=== PATIENT | female | born 1950 | race Hispanic/Latino ===

== ENCOUNTER 2017-09-08 23:07 | Emergency (ER) | payer MEDICARE ==
[~2017-09-08 23:07] MED LIST: AMLO5TAB2 PO; ASPI81TA40 PO; CLON0.1T PO; LOSA100T29 PO
[2017-09-08] MEDS ORDERED: ONDANSETRON HCL MDV 20ML 2 MG/ML VIAL ONE (23:12)
[2017-09-08] MEDS ORDERED: SODIUM CHLORIDE 0.9% 1000ML 1,000 ML IV ONE (23:19)
[2017-09-08] MEDS ORDERED: ONDANSETRON HCL 4 MG/2 ML VIAL ONE (23:19)
[2017-09-08 23:35] LABS: BASOPHILS % (AUTO) 1.5 % (0.0-5.0); EOSINOPHILS % (AUTO) 1.3 % (0.0-8.0); HEMATOCRIT 41.8 % (36-48); LYMPHOCYTES % (AUTO) 23.5 % (21.0-51.0); MEAN CORPUSCULAR HEMOGLOBIN 28.1 pg (27.0-33.0); MEAN CORPUSCULAR HGB CONC 33.4 g/dL (32.0-36.0); MEAN CORPUSCULAR VOLUME 84.1 fL (79-99); MONOCYTES % (AUTO) 5.1 % (3.0-13.0); NEUTROPHILS % (AUTO) 68.6 % (40.0-77.0); PLATELET COUNT (AUTO) 234 K/uL (130-400); RED BLOOD CELL COUNT(AUTO) 4.97 MIL/uL (4.00-5.50); RED CELL DISTRIBUTION WIDTH 13.4 % (11.0-15.5); WHITE BLOOD COUNT (AUTO) 11.2 K/uL (4.8-10.8)
[2017-09-08 23:48] LABS: CREATININE 1.2 mg/dL (0.5-1.5); POTASSIUM 3.9 mmol/L (3.5-5.1)
[2017-09-08 23:53] LABS: ALBUMIN 3.8 g/dL (3.5-5.0); BILIRUBIN,TOTAL 0.3 mg/dL (0.2-1.0); TOTAL PROTEIN, SERUM 8.3 g/dL (6.0-8.3)
[2017-09-09 00:49] LABS: APPEARANCE,URINE Clear (CLEAR); BILIRUBIN,URINE Negative (NEGATIVE); COLOR,URINE Yellow (YELLOW); GLUCOSE, URINE (UA) Negative (NEGATIVE); KETONES,URINE Negative (NEGATIVE); LEUKOCYTE ESTERASE ,URINE Negative (NEGATIVE); NITRATE,URINE Negative (NEGATIVE); OCCULT BLOOD,URINE Negative (NEGATIVE); PH,URINE 6.5 (5.0-8.0); PROTEIN,URINE Negative (NEGATIVE); UROBILINOGEN,URINE 0.2 mg/dL (0.2-1.0)
== END 2017-09-09 01:57 | disposition home or self-care (01) ==
LOC: EDH 23:07
DX: K52.9 Noninfective gastroenteritis and colitis, unspecified (principal); I10 Essential (primary) hypertension; Z88.6 Allergy status to analgesic agent
CPT/HCPCS: 36415; 74176; 80053; 81003; 82150; 83690; 85025; 93005; 96361; 96374; 99285; J2405; J7030

== ENCOUNTER → 2017-09-19 | Outpatient (CLI) | payer MEDICARE | END | disposition home or self-care (01) | LOC: OIH 09:37 | PROVIDERS: ATTEND Family Medicine | DX: M17.11 Unilateral primary osteoarthritis, right knee (principal) | CPT/HCPCS: 73562 ==

== ENCOUNTER → 2018-04-07 | Outpatient (CLI) | payer MEDICARE ==
[~2018-04-07] MED LIST changes: -AMLO5TAB2 PO; +AMLO5TAB9 PO; -LOSA100T29 PO; +LOSA100T58 PO
== END | disposition home or self-care (01) ==
LOC: RAH 10:26
PROVIDERS: ATTEND Family Medicine
DX: Z12.31 Encounter for screening mammogram for malignant neoplasm of breast (principal)
CPT/HCPCS: 77067

== ENCOUNTER 2018-06-12 09:51 | Inpatient (IN) | payer MEDICARE | END 2018-06-14 15:49 | disposition home or self-care (01) | LOC: EDH 09:51 → EDHIP 14:16 → 3CH 23:10 | DX: R07.89 Other chest pain (principal); I10 Essential (primary) hypertension ==

== ENCOUNTER 2018-09-25 15:45 | Emergency (ER) | payer MEDICARE ==
[~2018-09-25 15:45] MED LIST changes: +AMOX500C2 PO; +CHOL200074 PO; +CLAR500T PO; -CLON0.1T PO; +METF-444 PO; +OMEG-148 PO; +OMEP-50 PO
[2018-09-25 16:04] LABS: EOSINOPHILS % (AUTO) 1.4 % (0.0-8.0); HEMATOCRIT 41.9 % (36-48); LYMPHOCYTES % (AUTO) 25.7 % (21.0-51.0); MEAN CORPUSCULAR HEMOGLOBIN 27.8 pg (27.0-33.0); MEAN CORPUSCULAR HGB CONC 33.6 g/dL (32.0-36.0); MEAN CORPUSCULAR VOLUME 82.8 fL (79-99); MONOCYTES % (AUTO) 9.1 % (3.0-13.0); NEUTROPHILS % (AUTO) 62.8 % (40.0-77.0); PLATELET COUNT (AUTO) 248 K/uL (130-400); RED BLOOD CELL COUNT(AUTO) 5.06 MIL/uL (4.00-5.50); RED CELL DISTRIBUTION WIDTH 13.1 % (11.0-15.5); WHITE BLOOD COUNT (AUTO) 10.3 K/uL (4.8-10.8)
[2018-09-25 16:19] LABS: INR 0.99 (0.85-1.15); PARTIAL THROMBOPLASTIN TIME 29.9 SEC (26.3-35.5); PROTHROMBIN TIME 10.4 SEC (9.6-11.6)
[2018-09-25 16:20] LABS: POTASSIUM 4.2 mmol/L (3.5-5.1)
[2018-09-25 16:39] LABS: APPEARANCE,URINE Clear (CLEAR); BILIRUBIN,URINE Negative (NEGATIVE); COLOR,URINE Yellow (YELLOW); GLUCOSE, URINE (UA) Negative (NEGATIVE); KETONES,URINE Negative (NEGATIVE); LEUKOCYTE ESTERASE ,URINE Trace (NEGATIVE); NITRATE,URINE Negative (NEGATIVE); OCCULT BLOOD,URINE Negative (NEGATIVE); PROTEIN,URINE Negative (NEGATIVE); UROBILINOGEN,URINE 0.2 mg/dL (0.2-1.0)
[2018-09-25] MEDS ORDERED: LIDOCAINE HCL 2% VISCOUS 15 ML UDCUP ONE (16:44)
[2018-09-25] MEDS ORDERED: MAG HYDROX/AL HYDROX/SIMETH ES 30 ML SUSP UDCUP ONE (16:45)
[2018-09-25 17:05] LABS: ALBUMIN 3.8 g/dL (3.5-5.0); TOTAL PROTEIN, SERUM 7.9 g/dL (6.0-8.3)
[2018-09-25 17:17] LABS: BILIRUBIN,TOTAL 0.5 mg/dL (0.2-1.0)
[2018-09-25 17:24] LABS: BACTERIA,URINE Rare /HPF (None Seen); RBC,URINE None Seen /HPF (0-1); SQUAMOUS EPITHELIAL CELL,UR 0-2 /HPF (0-2)
[2018-09-25] MEDS ORDERED: SODIUM CHLORIDE 0.9% 1000ML 1,000 ML IV ONE (17:37)
[2018-09-25] MEDS ORDERED: LEVOFLOXACIN 500 MG/D5W 100 ML 100 ML ONE (17:38)
[2018-09-25] MEDS ORDERED: ONDANSETRON HCL 4 MG/2 ML VIAL ONE (17:38)
== END 2018-09-25 19:12 | disposition home or self-care (01) ==
LOC: EDH 15:45
DX: N39.0 Urinary tract infection, site not specified (principal); R10.13 Epigastric pain; I10 Essential (primary) hypertension; E11.9 Type 2 diabetes mellitus without complications; Z90.49 Acquired absence of other specified parts of digestive tract; Z88.5 Allergy status to narcotic agent; Z88.6 Allergy status to analgesic agent
CPT/HCPCS: 36415; 71045; 80053; 81001; 82150; 82550; 83690; 84484; 85025; 85610; 85730; 86677; 87088; 93005; 96374; 96375; 99285; J1956; J2405; J7030

== ENCOUNTER 2018-09-27 12:40 | Emergency (ER) | payer MEDICARE ==
[2018-09-27] MEDS ORDERED: LIDOCAINE HCL 2% VISCOUS 15 ML UDCUP ONE (13:28)
[2018-09-27] MEDS ORDERED: ONDANSETRON HCL 4 MG/2 ML VIAL ONE (13:28)
[2018-09-27] MEDS ORDERED: FAMOTIDINE/PF 20 MG/2 ML VIAL IV ONE (13:28)
[2018-09-27] MEDS ORDERED: SODIUM CHLORIDE 0.9% 1000ML 1,000 ML IV ONE (13:28)
[2018-09-27] MEDS ORDERED: MAG HYDROX/AL HYDROX/SIMETH ES 30 ML SUSP UDCUP ONE (13:28)
[2018-09-27 13:37] LABS: EOSINOPHILS % (AUTO) 0.6 % (0.0-8.0); HEMATOCRIT 40.9 % (36-48); LYMPHOCYTES % (AUTO) 18.2 % (21.0-51.0); MEAN CORPUSCULAR HEMOGLOBIN 27.3 pg (27.0-33.0); MEAN CORPUSCULAR HGB CONC 32.8 g/dL (32.0-36.0); MEAN CORPUSCULAR VOLUME 83.1 fL (79-99); MONOCYTES % (AUTO) 10.5 % (3.0-13.0); NEUTROPHILS % (AUTO) 69.7 % (40.0-77.0); PLATELET COUNT (AUTO) 249 K/uL (130-400); RED BLOOD CELL COUNT(AUTO) 4.92 MIL/uL (4.00-5.50); RED CELL DISTRIBUTION WIDTH 13.3 % (11.0-15.5); WHITE BLOOD COUNT (AUTO) 11.6 K/uL (4.8-10.8)
[2018-09-27 13:45] LABS: INR 1.01 (0.85-1.15); PARTIAL THROMBOPLASTIN TIME 28.9 SEC (26.3-35.5); PROTHROMBIN TIME 10.6 SEC (9.6-11.6)
[2018-09-27 13:46] LABS: CREATININE 1.2 mg/dL (0.5-1.5); POTASSIUM 4.4 mmol/L (3.5-5.1)
[2018-09-27 13:52] LABS: ALBUMIN 3.8 g/dL (3.5-5.0); BILIRUBIN,TOTAL 0.5 mg/dL (0.2-1.0); TOTAL PROTEIN, SERUM 7.9 g/dL (6.0-8.3)
[2018-09-27 13:58] LABS: APPEARANCE,URINE Clear (CLEAR); BILIRUBIN,URINE Negative (NEGATIVE); COLOR,URINE Yellow (YELLOW); GLUCOSE, URINE (UA) Negative (NEGATIVE); KETONES,URINE Trace mg/dL (NEGATIVE); LEUKOCYTE ESTERASE ,URINE Negative (NEGATIVE); NITRATE,URINE Negative (NEGATIVE); OCCULT BLOOD,URINE Negative (NEGATIVE); PROTEIN,URINE Negative (NEGATIVE); UROBILINOGEN,URINE 0.2 mg/dL (0.2-1.0)
[2018-09-27] MEDS ORDERED: IOHEXOL-350 75 ML VIAL IV ONE (14:00)
== END 2018-09-27 16:16 | disposition home or self-care (01) ==
LOC: EDH 12:40
DX: K29.70 Gastritis, unspecified, without bleeding (principal); R10.13 Epigastric pain; I10 Essential (primary) hypertension; E11.9 Type 2 diabetes mellitus without complications; Z90.49 Acquired absence of other specified parts of digestive tract; Z94.7 Corneal transplant status; Z88.6 Allergy status to analgesic agent; Z88.5 Allergy status to narcotic agent
CPT/HCPCS: 36415; 71045; 74177; 76705; 80053; 81003; 82150; 82550; 83690; 84484; 85025; 85610; 85730; 93005; 96361; 96374; 96375; 99285; J2405; J3490; J7030; Q9967

== ENCOUNTER → 2019-04-07 | Outpatient (CLI) | payer OTHER, MEDICARE ==
[~2019-04-07] MED LIST changes: -OMEP-50 PO; +OMEP20CA12 PO
== END | disposition home or self-care (01) ==
LOC: RAH 07:42
PROVIDERS: ATTEND Internal Medicine Gastroenterology
DX: K76.0 Fatty (change of) liver, not elsewhere classified (principal); R93.2 Abnormal findings on diagnostic imaging of liver and biliary tract; K76.89 Other specified diseases of liver
CPT/HCPCS: 76700

== ENCOUNTER → 2020-07-04 | Outpatient (CLI) | payer OTHER, MEDICARE ==
[~2020-07-04] MED LIST changes: +AMLO-257 PO; -AMLO5TAB9 PO; +CLAR-44 PO; -CLAR500T PO
== END | disposition home or self-care (01) ==
LOC: SHCH 15:00
PROVIDERS: ATTEND Internal Medicine Cardiovascular Disease
DX: R01.1 Cardiac murmur, unspecified (principal)
CPT/HCPCS: 93306; 93356

== ENCOUNTER 2021-11-02 04:00 | Emergency (ER) | payer MEDICARE, OTHER ==
[~2021-11-02] VITALS: Ht 157.5 cm; Wt 74.8 kg
[2021-11-02 04:21] LABS: BASOPHILS % (AUTO) 0.6 % (0.0-5.0); EOSINOPHILS % (AUTO) 1.8 % (0.0-8.0); HEMATOCRIT 45.5 % (36-48); LYMPHOCYTES % (AUTO) 39.5 % (21.0-51.0); MEAN CORPUSCULAR HEMOGLOBIN 27.3 pg (27.0-33.0); MEAN CORPUSCULAR HGB CONC 32.1 g/dL (32.0-36.0); MONOCYTES % (AUTO) 7.8 % (3.0-13.0); NEUTROPHILS % (AUTO) 49.8 % (40.0-77.0); PLATELET COUNT (AUTO) 250 K/uL (130-400); RED BLOOD CELL COUNT(AUTO) 5.35 MIL/uL (4.00-5.50); RED CELL DISTRIBUTION WIDTH 12.4 % (11.0-15.5); WHITE BLOOD COUNT (AUTO) 9.7 K/uL (4.8-10.8)
[2021-11-02 04:22] LABS: APPEARANCE,URINE CLEAR (CLEAR); BILIRUBIN,URINE NEGATIVE (NEGATIVE); COLOR,URINE STRAW (YELLOW); GLUCOSE, URINE (UA) NEGATIVE (NEGATIVE); KETONES,URINE NEGATIVE (NEGATIVE); LEUKOCYTE ESTERASE ,URINE MODERATE (NEGATIVE); NITRATE,URINE NEGATIVE (NEGATIVE); OCCULT BLOOD,URINE NEGATIVE (NEGATIVE); PH,URINE 7.5 (5.0-8.0); PROTEIN,URINE NEGATIVE (NEGATIVE); UROBILINOGEN,URINE 0.2 mg/dL (0.2-1.0)
[2021-11-02 04:28] LABS: RBC,URINE 0-1 /HPF (0-1)
[2021-11-02 04:29] LABS: BACTERIA,URINE Rare /HPF (None Seen); SQUAMOUS EPITHELIAL CELL,UR Few /HPF (0-2); TRANSITIONAL EPI CELLS,URINE Few /HPF (None Seen)
[2021-11-02] MEDS ORDERED: ONDANSETRON 4MG INJ IVP ONE (04:30)
[2021-11-02] MEDS ORDERED: 0.9%NACL 1000ML 1,000 ML IV ONE (04:30)
[2021-11-02 04:55] LABS: ALBUMIN 3.7 g/dL (3.5-5.0); CREATININE 1.1 mg/dL (0.5-1.5); POTASSIUM 3.9 mmol/L (3.5-5.1); TOTAL PROTEIN, SERUM 7.3 g/dL (6.0-8.3)
[2021-11-02] MEDS ORDERED: CEFTRIAXONE 1G VIAL IVP ONE (05:00)
[2021-11-02] MEDS ORDERED: CEFD300C3 PO (05:14)
[2021-11-02] MEDS ORDERED: ACET-66 PO (05:14)
[2021-11-02 05:51] VITALS: BP 139/62
== END 2021-11-02 05:56 | disposition home or self-care (01) ==
LOC: EDH 04:00
DX: N39.0 Urinary tract infection, site not specified (principal); Z20.822 Contact with and (suspected) exposure to COVID-19; I10 Essential (primary) hypertension; Z79.82 Long term (current) use of aspirin; Z79.84 Long term (current) use of oral hypoglycemic drugs; Z79.899 Other long term (current) drug therapy; Z88.5 Allergy status to narcotic agent; Z88.8 Allergy status to other drugs, medicaments and biological substances
CPT/HCPCS: 99284; 96374; 87635; 96361; 96375; 84484; 80053; 83690; 85025; 87077; 87088; 87186; 87804 ×2; 81001; 36415; 93005; C9803; J7030; J0696; J2405

== ENCOUNTER 2021-11-13 02:38 | Emergency (ER) | payer OTHER ==
[~2021-11-13] VITALS: Ht 157.5 cm; Wt 74.8 kg
[~2021-11-13 02:38] MED LIST changes: +ACET-66 PO; +CEFD300C3 PO
[2021-11-13 03:08] LABS: BASOPHILS % (AUTO) 0.8 % (0.0-5.0); EOSINOPHILS % (AUTO) 1.4 % (0.0-8.0); HEMATOCRIT 41.2 % (36-48); LYMPHOCYTES % (AUTO) 39.9 % (21.0-51.0); MEAN CORPUSCULAR HEMOGLOBIN 27.7 pg (27.0-33.0); MEAN CORPUSCULAR HGB CONC 33.3 g/dL (32.0-36.0); MEAN CORPUSCULAR VOLUME 83.2 fL (79-99); MONOCYTES % (AUTO) 7.1 % (3.0-13.0); NEUTROPHILS % (AUTO) 50.5 % (40.0-77.0); PLATELET COUNT (AUTO) 236 K/uL (130-400); RED BLOOD CELL COUNT(AUTO) 4.95 MIL/uL (4.00-5.50); RED CELL DISTRIBUTION WIDTH 12.4 % (11.0-15.5); WHITE BLOOD COUNT (AUTO) 8.7 K/uL (4.8-10.8)
[2021-11-13 03:09] LABS: POTASSIUM 3.6 mmol/L (3.5-5.1)
[2021-11-13 03:19] LABS: ALBUMIN 3.9 g/dL (3.5-5.0); TOTAL PROTEIN, SERUM 7.7 g/dL (6.0-8.3)
[2021-11-13 03:27] LABS: APPEARANCE,URINE CLEAR (CLEAR); BILIRUBIN,URINE NEGATIVE (NEGATIVE); COLOR,URINE YELLOW (YELLOW); GLUCOSE, URINE (UA) NEGATIVE (NEGATIVE); KETONES,URINE NEGATIVE (NEGATIVE); NITRATE,URINE NEGATIVE (NEGATIVE); OCCULT BLOOD,URINE NEGATIVE (NEGATIVE); PH,URINE 7.5 (5.0-8.0); PROTEIN,URINE NEGATIVE (NEGATIVE); UROBILINOGEN,URINE 0.2 mg/dL (0.2-1.0)
[2021-11-13 03:28] LABS: LEUKOCYTE ESTERASE ,URINE NEGATIVE (NEGATIVE)
[2021-11-13 03:43] VITALS: BP 121/79
[2021-11-13] MEDS ORDERED: ONDANSETRON 4MG INJ IVP ONE (04:00)
[2021-11-13] MEDS ORDERED: MECLIZINE HCL 12.5 MG TABLET PO ONE (04:00)
[2021-11-13] MEDS ORDERED: SULF1TAB42 PO (04:51)
[2021-11-13] MEDS ORDERED: MECL-226 PO (04:52)
[2021-11-13] MEDS ORDERED: NITROFURANTOIN MONOHYD/M-CRYST 100 MG CAPSULE PO ONE (05:00)
== END 2021-11-13 04:55 | disposition home or self-care (01) ==
LOC: EDH 02:38
DX: N39.0 Urinary tract infection, site not specified (principal); I10 Essential (primary) hypertension; Z88.5 Allergy status to narcotic agent; Z88.6 Allergy status to analgesic agent; Z79.899 Other long term (current) drug therapy; Z79.84 Long term (current) use of oral hypoglycemic drugs; Z79.82 Long term (current) use of aspirin; Z90.89 Acquired absence of other organs; Z98.890 Other specified postprocedural states
CPT/HCPCS: 99284; 96374; 84484; 80053; 85025; 81003; 36415; 93005; J2405

== ENCOUNTER 2021-12-03 13:38 | Emergency (ER) | payer OTHER ==
[~2021-12-03] VITALS: Ht 157.5 cm; Wt 72.6 kg
[~2021-12-03 13:38] MED LIST changes: +MECL-226 PO; +SULF1TAB42 PO
[2021-12-03] MEDS ORDERED: ONDANSETRON 4MG INJ IVP ONE (15:00)
[2021-12-03 15:20] LABS: EOSINOPHILS % (AUTO) 0.6 % (0.0-8.0); HEMATOCRIT 43.1 % (36-48); LYMPHOCYTES % (AUTO) 27.3 % (21.0-51.0); MEAN CORPUSCULAR HEMOGLOBIN 27.1 pg (27.0-33.0); MEAN CORPUSCULAR HGB CONC 32.3 g/dL (32.0-36.0); MEAN CORPUSCULAR VOLUME 84.2 fL (79-99); MONOCYTES % (AUTO) 7.2 % (3.0-13.0); NEUTROPHILS % (AUTO) 63.3 % (40.0-77.0); PLATELET COUNT (AUTO) 312 K/uL (130-400); RED BLOOD CELL COUNT(AUTO) 5.12 MIL/uL (4.00-5.50); RED CELL DISTRIBUTION WIDTH 12.5 % (11.0-15.5); WHITE BLOOD COUNT (AUTO) 11.6 K/uL (4.8-10.8)
[2021-12-03 15:25] LABS: APPEARANCE,URINE CLEAR (CLEAR); BILIRUBIN,URINE NEGATIVE (NEGATIVE); COLOR,URINE YELLOW (YELLOW); GLUCOSE, URINE (UA) NEGATIVE (NEGATIVE); KETONES,URINE NEGATIVE (NEGATIVE); LEUKOCYTE ESTERASE ,URINE NEGATIVE (NEGATIVE); NITRATE,URINE NEGATIVE (NEGATIVE); OCCULT BLOOD,URINE NEGATIVE (NEGATIVE); PROTEIN,URINE NEGATIVE (NEGATIVE); UROBILINOGEN,URINE 0.2 mg/dL (0.2-1.0)
[2021-12-03 15:29] LABS: CREATININE 1.2 mg/dL (0.5-1.5); POTASSIUM 4.1 mmol/L (3.5-5.1)
[2021-12-03 15:34] LABS: TOTAL PROTEIN, SERUM 8.1 g/dL (6.0-8.3)
[2021-12-03] MEDS: 0.9%NACL 1000ML 1,000 ML IV SCH ×2 (15:39→16:36)
[2021-12-03 17:06] VITALS: BP 133/68
== END 2021-12-03 17:16 | disposition home or self-care (01) ==
LOC: EDH 13:38
DX: E86.0 Dehydration (principal); R50.9 Fever, unspecified; R06.02 Shortness of breath; R11.2 Nausea with vomiting, unspecified; Z20.822 Contact with and (suspected) exposure to COVID-19; I10 Essential (primary) hypertension
CPT/HCPCS: 99284; 96374; 71045; 87635; 80053; 85025; 87880; 87804 ×2; 81003; 36415; C9803; J7030; J2405

== ENCOUNTER → 2022-04-04 | Outpatient (CLI) | payer OTHER | END | disposition home or self-care (01) | LOC: RAH 09:16 | PROVIDERS: ATTEND Nurse Practitioner | DX: Z12.31 Encounter for screening mammogram for malignant neoplasm of breast (principal) | CPT/HCPCS: 77067 ==

== ENCOUNTER 2022-09-08 12:56 | Observation (INO) | payer OTHER ==
[~2022-09-08] VITALS: Ht 157.5 cm; Wt 79.1 kg
[~2022-09-08 12:56] MED LIST changes: -LOSA100T58 PO; +LOSA100T59 PO
[2022-09-08 14:06] LABS: BASOPHILS % (AUTO) 0.7 % (0.0-5.0); EOSINOPHILS % (AUTO) 1.3 % (0.0-8.0); HEMATOCRIT 41.7 % (36-48); MEAN CORPUSCULAR HEMOGLOBIN 26.9 pg (27.0-33.0); MEAN CORPUSCULAR HGB CONC 31.9 g/dL (32.0-36.0); MEAN CORPUSCULAR VOLUME 84.2 fL (79-99); MONOCYTES % (AUTO) 7.4 % (3.0-13.0); PLATELET COUNT (AUTO) 232 K/uL (130-400); RED BLOOD CELL COUNT(AUTO) 4.95 MIL/uL (4.00-5.50); RED CELL DISTRIBUTION WIDTH 13.3 % (11.0-15.5)
[2022-09-08 14:11] LABS: APPEARANCE,URINE CLEAR (CLEAR); BILIRUBIN,URINE NEGATIVE (NEGATIVE); COLOR,URINE LIGHT-YELLOW (YELLOW); GLUCOSE, URINE (UA) NEGATIVE (NEGATIVE); KETONES,URINE NEGATIVE (NEGATIVE); LEUKOCYTE ESTERASE ,URINE 25 Leu/uL (NEGATIVE); NITRATE,URINE NEGATIVE (NEGATIVE); OCCULT BLOOD,URINE NEGATIVE (NEGATIVE); PROTEIN,URINE NEGATIVE (NEGATIVE); UROBILINOGEN,URINE 0.2 mg/dL (0.2-1.0)
[2022-09-08] MEDS ORDERED: SCOP1PAT11 TD ×2 (14:23→20:37)
[2022-09-08 14:26] LABS: MUCUS,URINE RARE LPF (None Seen); RBC,URINE 0-1 /HPF (0-1); SQUAMOUS EPITHELIAL CELL,UR FEW /HPF (0-2)
[2022-09-08] MEDS ORDERED: OLME40TA18 PO ×2 (14:28→20:37)
[2022-09-08] MEDS ORDERED: GABA-529 PO ×3 (14:28→22:14)
[2022-09-08 14:31] LABS: ALBUMIN 3.5 g/dL (3.5-5.0); TOTAL PROTEIN, SERUM 7.3 g/dL (6.0-8.3)
[2022-09-08] MEDS ORDERED: DEXL30CA4 PO ×2 (14:35→20:37)
[2022-09-08] MEDS ORDERED: TRAM50TA4 PO ×2 (14:35→20:37)
[2022-09-08] MEDS ORDERED: PROP40TA7 PO ×2 (14:35→20:37)
[2022-09-08] MEDS ORDERED: ROPI0.257 PO ×2 (14:35→20:37)
[2022-09-08] MEDS ORDERED: AMLO-257 PO (20:37)
[2022-09-08] MEDS ORDERED: ENOXAPARIN SODIUM 40 MG/0.4 ML SYRINGE SQ SCH (21:00)
[2022-09-08] MEDS ORDERED: FAMOTIDINE 20MG TAB PO SCH (21:00)
[2022-09-08 21:50] VITALS: BP_SYST 130; BP_SYST 132; BP_SYST 136; BP_DIAS 65; BP_DIAS 71; BP_DIAS 80
[2022-09-08] MEDS ORDERED: TRAMADOL HCL 50 MG TABLET PO PRN (23:00)
[2022-09-08] MEDS ORDERED: SCOPOLAMINE HYDROBROMIDE 1 EACH ADH..PATCH TD PRN (23:00)
[2022-09-09 05:15] LABS: BASOPHILS % (AUTO) 0.7 % (0.0-5.0); EOSINOPHILS % (AUTO) 2.3 % (0.0-8.0); HEMATOCRIT 39.5 % (36-48); LYMPHOCYTES % (AUTO) 33.5 % (21.0-51.0); MEAN CORPUSCULAR HEMOGLOBIN 26.6 pg (27.0-33.0); MEAN CORPUSCULAR HGB CONC 31.9 g/dL (32.0-36.0); MEAN CORPUSCULAR VOLUME 83.3 fL (79-99); MONOCYTES % (AUTO) 8.3 % (3.0-13.0); NEUTROPHILS % (AUTO) 54.8 % (40.0-77.0); PLATELET COUNT (AUTO) 213 K/uL (130-400); RED BLOOD CELL COUNT(AUTO) 4.74 MIL/uL (4.00-5.50); RED CELL DISTRIBUTION WIDTH 13.3 % (11.0-15.5); WHITE BLOOD COUNT (AUTO) 8.3 K/uL (4.8-10.8)
[2022-09-09 05:37] LABS: POTASSIUM 3.6 mmol/L (3.5-5.1)
[2022-09-09 08:00] VITALS: BP_SYST 129; BP_SYST 136; BP_SYST 137; BP_DIAS 61; BP_DIAS 65; BP_DIAS 69
[2022-09-09] MEDS ORDERED: ENOXAPARIN SODIUM 40 MG/0.4 ML SYRINGE SQ SCH (09:00)
[2022-09-09] MEDS ORDERED: Olmesartan Medoxomil 40 MG PO SCH (09:00)
[2022-09-09] MEDS ORDERED: ROPINIROLE HCL 0.25 MG TABLET PO SCH (09:00)
[2022-09-09] MEDS ORDERED: PROPRANOLOL HCL 20 MG TAB PO SCH (09:00)
[2022-09-09] MEDS ORDERED: GABAPENTIN 100 MG CAPSULE PO SCH ×3 (09:00)
[2022-09-09] MEDS ORDERED: NON-FORMULARY MEDICATION 1 EACH (Propranolol HCl 40 MG) PO SCH (09:00)
[2022-09-09] MEDS ORDERED: AMLODIPINE 5 MG TAB PO SCH (09:00)
[2022-09-09 11:57] VITALS: BP 108/50
[2022-09-09 12:08] VITALS: BP 110/72
== END 2022-09-09 13:45 | disposition home or self-care (01) ==
LOC: EDH 12:56 → EDHIP 19:31 → 3DH 21:50
PROVIDERS: ADMIT Internal Medicine; ATTEND Internal Medicine
DX: R55 Syncope and collapse (principal); E86.9 Volume depletion, unspecified; G25.0 Essential tremor; I10 Essential (primary) hypertension; N39.0 Urinary tract infection, site not specified; D72.829 Elevated white blood cell count, unspecified; E86.0 Dehydration; M54.30 Sciatica, unspecified side; Z79.899 Other long term (current) drug therapy; Z90.710 Acquired absence of both cervix and uterus; Z96.1 Presence of intraocular lens; Z79.82 Long term (current) use of aspirin; Z90.49 Acquired absence of other specified parts of digestive tract; Z98.890 Other specified postprocedural states; Z79.84 Long term (current) use of oral hypoglycemic drugs
CPT/HCPCS: 96372 ×2; 99285; 84484; 80053; 85025 ×2; 87088; 81001; 36415 ×2; 71045; 70450; 93005 ×2; 80048; 82948 ×2; G0378 ×18; J1650 ×2

== ENCOUNTER → 2023-12-12 | Outpatient (CLI) | payer OTHER, MEDICARE ==
[~2023-12-12] MED LIST changes: -ACET-66 PO; -AMOX500C2 PO; -ASPI81TA40 PO; -CEFD300C3 PO; -CHOL200074 PO; -CLAR-44 PO; +DEXL30CA9 PO; +GABA-529 PO; -LOSA100T59 PO; -MECL-226 PO; -METF-444 PO; +OLME40TA18 PO; -OMEG-148 PO; -OMEP20CA12 PO; +PROP40TA7 PO; +ROPI0.2535 PO; +SCOP1PAT11 TD; -SULF1TAB42 PO; +TRAM50TA4 PO
== END | disposition home or self-care (01) ==
LOC: RAH 09:44
PROVIDERS: ATTEND Internal Medicine Gastroenterology
DX: R93.2 Abnormal findings on diagnostic imaging of liver and biliary tract (principal); R10.13 Epigastric pain
CPT/HCPCS: 78227; A9537

== ENCOUNTER → 2023-12-25 | Outpatient (CLI) | payer OTHER, MEDICARE | END | disposition home or self-care (01) | LOC: RAH 10:14 | PROVIDERS: ATTEND Internal Medicine Gastroenterology | DX: R10.13 Epigastric pain (principal) | CPT/HCPCS: 78264; A9541 ==

== ENCOUNTER → 2024-05-07 | Outpatient (CLI) | payer OTHER, MEDICARE ==
--- NOTE | 2024-05-07 10:41 | HMCIMG ---
DEXA BONE DENSITY SURVEY HISTORY: Osteoporosis COMPARISON: None FINDINGS: Bone densitometry study was performed. Bone mineral density of the lumbar spine is 1.054 gram per centimeter square which corresponds to a T score of 0.1 and a Z score of 2.4. Bone mineral density of the left hip is 0.910 grams per centimeter square which corresponds to a T score of -0.3 and a Z score of 1.5. IMPRESSION: 1. Normal bone mineral density of the lumbar spine and left hip.
--- NOTE | 2024-05-07 10:48 | HMCIMG ---
MAMMO SCREENING BILATERAL HISTORY: Screening mammogram. COMPARISON: 04/04/2022 TECHNIQUE: Bilateral screening mammogram with CAD was performed with craniocaudal and mediolateral oblique projections. FINDINGS: There are scattered areas of fibroglandular density. There is no evidence of a dominant mass, or suspicious microcalcification. There is no evidence of nipple retraction or skin thickening. IMPRESSION: 1. Stable mammogram. Patient was entered into a reminder system with a target due date for their next mammogram. BI-RADS: CATEGORY 2: BENIGN FINDINGS Recommend monthly self breast exam as well as annual clinical examination. A negative x-ray should not delay biopsy if a dominant or clinically suspicious mass is present, since 8-10% of cancers are not identified by mammography. Dense breasts particularly, may obscure an underlying neoplasm. Some of these may be detected clinically and therefore, clinical examination is an essential part of breast evaluation.
== END | disposition home or self-care (01) ==
LOC: RAH 07:24
PROVIDERS: ATTEND Nurse Practitioner
DX: Z12.31 Encounter for screening mammogram for malignant neoplasm of breast (principal); M81.0 Age-related osteoporosis without current pathological fracture; R92.323 Mammographic fibroglandular density, bilateral breasts
CPT/HCPCS: 77067; 77080

== ENCOUNTER 2024-11-06 10:33 | Observation (INO) | payer OTHER, MEDICARE ==
[~2024-11-06] VITALS: Ht 154.9 cm; Wt 71.7 kg
--- NOTE | 2024-11-06 10:40 | ERN ---
ED Note History of Present Illness Stated Complaint: CHEST PAIN Chief Complaint: Chest Pain Time Seen by MD: 10:37 Dictation: PATIENT IS A 73-YEAR-OLD FEMALE COMING IN VIA EMS WITH COMPLAINTS OF SUBSTERNAL CHEST PAIN THAT RADIATES TO UPPER THORACIC BACK ONSET WAS APPROXIMATELY 40 MINUTES PRIOR TO ARRIVAL. SHE STATES SHE WAS HANGING UP SOME CLOSED WHEN SHE FELT THE PAIN. SHE DENIED ARM PAIN JAW PAIN NO SOB NO NAUSEA VOMITING. 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 NO CHEST PAIN AT THE PRESENT TIME. DENIES ANY HISTORY OF HEART DISEASE, HEART CATHETERIZATION STENTS OR SURGERIES. DOES HAVE A HISTORY OF DIABETES HYPERTENSION AND CHOLESTEROL. PATIENT WAS GIVEN ASPIRIN 324 AND NITRO BY EMS PRIOR TO ARRIVAL. Allergies: Coded Allergies: codeine (Unverified Allergy, Unknown, 09/27/18) Home Meds Reported Medications Gabapentin (Gabapentin) 100 Mg Capsule, 200 MG PO TID for SCIATICA PAIN, CAP 09/08/22 Propranolol HCl (Propranolol HCl) 40 Mg Tablet, 40 MG PO DAILY, TAB 09/08/22 Ropinirole HCl (Ropinirole HCl) 0.25 Mg Tablet, 0.25 MG PO BID for 1 tab in am, 2 tab hs , TAB 09/08/22 Tramadol Hcl (Tramadol HCl) 50 Mg Tablet, 50 MG PO BID PRN for PAIN, TAB 09/08/22 Olmesartan Medoxomil (Olmesartan Medoxomil) 40 Mg Tablet, 40 MG PO DAILY, TAB 09/08/22 Scopolamine (Transderm-Scop) 1 Each Patch.td.3, 1 EACH TD ONCE PRN for 1 every 3 days for vertigo 09/08/22 Amlodipine Besylate (Amlodipine Besylate) 5 Mg Tablet, 5 MG PO DAILY, TAB 09/08/22 Dexlansoprazole (Dexlansoprazole Dr) 30 Mg Cap.dr.bp, 30 MG PO DAILY 09/08/22 Past Medical History Past Medical History: Hypertension Additional Past Medical Hx: GASTRITIS Surgical History: None Social History: Negative, Lives with family History: Not Applicable RN Note Reviewed/Agreed w/PFSH: Yes Review of System Dictation CONSTITUTIONAL: NEGATIVE EXCEPT FOR HPI HEAD/FACE: NEGATIVE EXCEPT FOR HPI EENT: NEGATIVE EXCEPT FOR HPI RESPIRATORY: NEGATIVE EXCEPT FOR HPI SUBSTERNAL CHEST PAIN THAT RADIATES TO UPPER THORACICS GASTROINTESTINAL/ABDOMINAL: NEGATIVE EXCEPT FOR HPI GENITOURINARY: NEGATIVE EXCEPT FOR HPI MUSCULOSKELETAL: NEGATIVE EXCEPT FOR HPI INTEGUMENTARY: NEGATIVE EXCEPT FOR HPI NEUROLOGICAL/PSYCH: NEGATIVE EXCEPT FOR HPI HEMATOLOGIC/LYMPHATIC: NEGATIVE EXCEPT FOR HPI ALL SYSTEMS NEGATIVE, EXCEPT NOTED ABOVE. 13 POINT REVIEW OF SYSTEMS ASSESSED AND ALL NEGATIVE EXCEPT FOR ABOVE. Initial Vital Sign VS Vital Signs Date Time Temp Pulse Resp B/P (MAP) Pulse Ox O2 Delivery O2 Flow Rate FiO2 11/06/24 10:35 99.0 72 20 102/83 99 Nasal Cannula 2.0 11/06/24 10:55 21 Physical Exam Dictation VITAL SIGNS REVIEWED GENERAL APPEARANCE: ALERT, ORIENTED X 3, MILD ACUTE DISTRESS, WELL DEVELOPED, NOURISHED. HEAD AND FACE: NON-TRAUMATIC. EYES: PERRL, PINK CONJUNCTIVAS, EYELID NO TRAUMA, ANTERIOR CHAMBER WITH ARCUS SENILIS. EARS: PINNAS INTACT AND NO SIGNS OF TRAUMA OR ERYTHEMA EAR CANALS CLEAR AND NO DISCHARGE TM NO ERYTHEMA NOSE: NO DISCHARGE, NO BLEEDING. OROPHARYNX: MOUTH NORMAL, TONGUE PINK, PHARYNX CLEAR,NO ERYTHEMA, TONSILS NO EXUDATES, NO ABSCESSES NOTED, MUCOUS MEMBRANE MOIST NECK: SUPPLE, NON-TENDER, NO THYROMEGALY, NO MASSES, NO JVD, NO BRUITS BREAST:DEFERRED CHEST:NO TENDERNESS, NO CREPITUS, NO PARADOXICAL MOVEMENT, NO RETRACTIONS LUNGS:CLEAR, WELL-VENTILATED, SYMMETRIC, NO RALES, NO WHEEZING, NO RHONCHI, NO STRIDOR, GOOD BREATH SOUNDS BILATERALLY HEART: REGULAR RATE, REGULAR RHYTHM, NO MURMUR, NO GALLOPS VASCULAR: NO PERIPHERAL EDEMA, ABDOMEN: SOFT, POSITIVE BOWEL SOUNDS, NONDISTENDED, NO GUARDING, NONTENDER, NO REBOUND, NO MASSES NO HEPATOMEGALY, NO SPLENOMEGALY, NO JEAN'S SIGN, NO HERNIAS. RECTAL: DEFERRED GENITAL: DEFERRED NEUROLOGICAL: NORMAL SPEECH, MOTOR FUNCTION INTACT, SENSORY FUNCTION INTACT MUSCULOSKELETAL: NECK NONTENDER, FULL RANGE OF MOTION, BACK NONTENDER, FULL RANGE OF MOTION, EXTREMITIES: NONTENDER, FULL RANGE OF MOTION SKIN: COLOR PINK, DRY, NO TURGOR, NO RASH, NO LACERATIONS, NO ABRASIONS, NO CONTUSIONS. LYMPHATIC: DEFERRED Results (Laboratory/Radiology) Laboratory/Radiology Laboratory Tests Test 11/06/24 10:55 White Blood Count 8.6 K/uL (4.8-10.8) Red Blood Count 5.48 MIL/uL (4.00-5.50) Hemoglobin 14.8 g/dL (12.0-16.0) Hematocrit 46.7 % (36-48) Mean Corpuscular Volume 85.2 fL (79-99) Mean Corpuscular Hemoglobin 27.0 pg (27.0-33.0) Mean Corpuscular Hemoglobin Concent 31.7 g/dL (32.0-36.0) L Red Cell Distribution Width 13.2 % (11.0-15.5) Platelet Count 221 K/uL (130-400) Mean Platelet Volume 10.1 fL (7.5-10.5) Immature Granulocyte % (Auto) 0.5 % (0-1) Neutrophils (%) (Auto) 56.3 % (40.0-77.0) Lymphocytes (%) (Auto) 30.9 % (21.0-51.0) Monocytes (%) (Auto) 9.0 % (3.0-13.0) Eosinophils (%) (Auto) 2.3 % (0.0-8.0) Basophils (%) (Auto) 1.0 % (0.0-5.0) Neutrophils # (Auto) 4.9 K/uL (1.8-7.7) Lymphocytes # (Auto) 2.7 K/uL (1.0-4.8) Monocytes # (Auto) 0.8 K/uL (0.1-1.0) Eosinophils # (Auto) 0.20 K/uL (0.00-0.70) Basophils # (Auto) 0.09 K/uL (0.00-0.20) Absolute Immature Granulocyte (auto 0.04 K/uL (0-1) Nucleated Red Blood Cells 0.0 % (0.0-0.19) Urine Color LIGHT-YELLOW (YELLOW) Urine Appearance CLEAR (CLEAR) Urine pH 7.0 (5.0-8.0) Urine Specific [place] 1.011 (1.001-1.031) Urine Protein NEGATIVE mg/dL (NEGATIVE) Urine Glucose (UA) >=1000 mg/dL (NEGATIVE) H Urine Ketones NEGATIVE mg/dL (NEGATIVE) Urine Occult Blood NEGATIVE (NEGATIVE) Urine Nitrate NEGATIVE (NEGATIVE) Urine Bilirubin NEGATIVE mg/dL (NEGATIVE) Urine Urobilinogen 0.2 mg/dL (0.2-1.0) Urine Leukocyte Esterase NEGATIVE Carlyle/uL Urine RBC 2-5 /HPF (0-1) H Urine WBC 0-1 /HPF (0-1) Urine Squamous Epithelial Cells FEW /HPF (0-2) Urine Bacteria RARE /HPF (None Seen) Urine Hyaline Casts 2-5 /LPF (0-1 /LPF) H Sodium Level 143 mmol/L (136-145) Potassium Level 4.2 mmol/L (3.5-5.1) Chloride Level 106 mmol/L (101-111) Carbon Dioxide Level 31 mmol/L (21-32) Blood Urea Nitrogen 12 mg/dL (7-18) Creatinine 1.1 mg/dL (0.5-1.0) H Glomerular Filtration Rate Calc 53 mL/min (>90) Random Glucose 100 mg/dL (70-105) Total Calcium 8.4 mg/dL (8.5-10.1) L Troponin I High Sensitivity 19 ng/L (4-50) 1145/CHEST X-RAY NEGATIVE Labs Reviewed?: Yes EKG: (+) NSR EKG Comment: EKG NORMAL SINUS RHYTHM/HEART RATE 65/AXIS NORMAL/NO ECTOPY ED Course ED Course Orders Procedure Category Date Status Time Chest 1vw RAD 11/06/24 Resulted 10:34 12 Lead Ekg Tracing- EKG 11/06/24 Logged Technical 10:34 Oxygen By Nc/Pulse Ox CPOE 11/06/24 Transmitted 10:34 Maintain Iv CPOE 11/06/24 Transmitted 10:34 Iv Insertion CPOE 11/06/24 Transmitted 10:34 Cardiac Monitoring CPOE 11/06/24 Transmitted 10:34 Pulse Oximetry With CPOE 11/06/24 Transmitted Vs And Prn 10:34 Cbc With Differential LAB 11/06/24 Complete 10:34 Troponin I High LAB 11/06/24 Complete Sensitivity 10:34 Urinalysis Profile LAB 11/06/24 Complete 10:34 Basic Metabolic Panel LAB 11/06/24 Complete 10:34 0.9%Nacl 1000ml (Ns PHA 11/06/24 Logged 1000ml) 12:00 Current Medications Medications (Trade) Dose Ordered Sig/Peter Route PRN Reason Start Time Stop Time Status Last Admin Dose Admin Sodium Chloride 1,000 ml @ 0 mls/hr ONCE ONCE IV 11/06/24 12:00 11/06/24 12:01 UNV Vital Signs Date Time Temp Pulse Resp B/P (MAP) Pulse Ox O2 Delivery O2 Flow Rate FiO2 11/06/24 10:55 69 14 135/52 100 Room Air* 0 21 11/06/24 10:35 99.0 72 20 102/83 99 Nasal Cannula 2.0 1158/PATIENT MADE AWARE THAT SHE NEEDS TO BE ADMITTED TO THE HOSPITAL FOR FOLLOW UP EKG AND TROPONINS, ALSO REHYDRATION. DAUGHTER AT BEDSIDE AND THEY AGREED TO BE ADMITTED.1205/SPOKE WITH REVIEWED EKG LABS. ADDITIONALLY HE IS AWARE OF THE ELICEO AND FLUIDS GIVEN WE WILL FOLLOW UP WITH ADMISSION HEART Score Response (Comments) Value History: Moderate suspicion (+1) 1 Age: > 65yrs (+2) 2 Risk Factors: 3+ risk factors (+2) 2 Initial Troponin: Normal limit (0) 0 Total 5 Medical Decision Making MDM MDM: DIFFERENTIAL DIAGNOSIS: ACS/AMI/ELECTROLYTE IMBALANCE/DEHYDRATION/PNEUMONIA/BRONCHITIS/GASTRITIS RATIONALE: TESTS CONSIDERED AND ORDERED SECONDARY TO SHARED DECISION MAKING INCLUDE: LABS, ECG AND RADIOLOGY PREVIOUS OUTSIDE RECORDS REVIEWED: OLD ER VISITS. RISK OF COMPLICATION AND/OR MORBIDITY OR MORTALITY OF PATIENT MANAGEMENT: NONE MEDICATIONS-PER MEDICATION RECONCILIATION NEED FOR HOSPITALIZATION: PATIENT DOES MEET CRITERIA FOR HOSPITALIZATION. PATIENT WILL NEED SERIAL EKG WITH A ENZYMES, REHYDRATION FOR ELICEO NEED FOR EMERGENCY MAJOR/MINOR SURGERY: NO THERE ARE NO SOCIAL CONCERNS WITH THIS PATIENT. PRESCRIPTION DRUG MANAGEMENT PRESCRIPTIONS WILL INCLUDE SYMPTOMATIC CARE PATIENT'S PRIOR EXTERNAL MEDICAL RECORDS FROM OTHER ER VISITS WERE REVIEWED BY ME INDICATED. PRIOR TESTING AND RESULTS FROM PREVIOUS VISITS WERE REVIEWED. PRIOR TESTS WERE TAKEN INTO ACCOUNT WITH MEDICAL DECISION MAKING AND RESOURCE UTILIZATION, INDEPENDENT HISTORIAN/HISTORIANS WERE USED TO OBTAIN COMPLETE MEDICAL HISTORY. I INDEPENDENTLY INTERPRETED THE TEST THAT WERE PERFORMED, RESULTS WERE REVIEWED BY ME AND CONSIDERED FINDINGS ON RADIOLOGY IF ORDERED. MEDICAL MANAGEMENT AND EXAMINATION INTERPRETATION DISCUSSIONS WERE HAD BY ME WITH OTHER QUALIFIED HEALTHCARE PROFESSIONALS INDICATED FOR THE PATIENT'S CARE. DX & DISP Disposition: Inpatient Decision to Admit Time: 11:58 Departure Impression: Primary Impression: Chest pain with high risk of acute coronary syndrome Additional Impressions: [place]-gj-dwkfkwy kidney injury, Dehydration, Hypocalcemia Condition: Stable Referrals: OPAL FERNANDEZ (PCP) Time of Disposition: 11:58 I have reviewed the case, and I agree with, Diagnosis and Plan NATALIYA JONES NP Nov 06, 2024 10:40
[2024-11-06 11:08] LABS: IMMATURE GRANULOCYTE ABSOLUTE 0.04 K/uL (0-1); NUCLEATED RED BLOOD CELLS 0.0 % (0.0-0.19); PLATELET COUNT (AUTO) 221 K/uL (130-400); RED BLOOD CELL COUNT(AUTO) 5.48 MIL/uL (4.00-5.50); RED CELL DISTRIBUTION WIDTH 13.2 % (11.0-15.5); WHITE BLOOD COUNT (AUTO) 8.6 K/uL (4.8-10.8)
[2024-11-06 11:15] LABS: CREATININE 1.1 mg/dL (0.5-1.0); GLOMERULAR FILTR. RATE CALC 53.0 mL/min (>90); GLUCOSE,RANDOM 100.0 mg/dL (70-105); SODIUM SERUM 143.0 mmol/L (136-145); UREA NITROGEN, BLOOD 12.0 mg/dL (7-18)
[2024-11-06 11:26] LABS: APPEARANCE,URINE CLEAR (CLEAR); GLUCOSE, URINE (UA) >=1000 mg/dL (NEGATIVE); LEUKOCYTE ESTERASE ,URINE NEGATIVE Leu/uL (NEGATIVE); NITRATE,URINE NEGATIVE (NEGATIVE); OCCULT BLOOD,URINE NEGATIVE (NEGATIVE)
[2024-11-06 11:28] LABS: ADD UA MICROSCOPIC YES
[2024-11-06 11:37] LABS: SQUAMOUS EPITHELIAL CELL,UR FEW /HPF (0-2)
--- NOTE | 2024-11-06 11:55 | HMCIMG ---
CHEST 1VW REASON: CHEST PAIN COMPARISON: Study from 09/08/2022 is available. FINDINGS: Single view of the chest was obtained. Lungs are clear. Heart size is normal. There is no pulmonary vascular congestion. Mediastinum and bony thorax appear unremarkable. IMPRESSION: No evidence of airspace consolidation or pulmonary venous congestion.
[2024-11-06] MEDS ORDERED: NITROGLYCERIN 0.4 MG SL TAB SL PRN (12:30)
--- NOTE | 2024-11-06 12:39 | HP ---
[facility] HISTORY AND PHYSICAL Date of Service: Nov 06, 2024 Time of Service: 12:39 HISTORY OF PRESENT ILLNESS: Patient is a 73-year-old female with past medical history of hypertension, diabetes mellitus type 2, essential tremors, chronic cough brought to the ED by EMS with chief complaint of chest pain. Chest pain radiating to the back which is sharp/pressure in nature started 1 hour ago before reaching the ED which was relieved with sublingual nitroglycerin administered by EMS. No aggravating or relieving factors. Patient also have associated shortness of breath, sweating, pleuritic chest pain. Patient denies fevers, chills, nausea, vomiting. Patient received aspirin 324 mg and nitroglycerin 0.[address] to the ED. Patient vitals temperature 99, pulse 56, respiratory rate 14, blood pressure 118/54 and saturating at 99% on room air Patient's labs shows sodium 143, potassium 4.2, creatinine 1.1, BUN 12, glucose 100 and troponin is 19. Chest x-ray reports no significant findings Patient is being admitted with a diagnosis of chest pain to rule out ACS. We will trend the troponins q.6 and cardiology has been consulted on the case . REVIEW OF SYSTEMS CONSTITUTIONAL: Denies fevers, chills, or night sweats. No unintentional weight loss reported. Admitted diaphoresis during the episode of chest pain NEUROLOGICAL: Denies headache, amaurosis fugax, motor weakness, sensory deficit, vertigo/spinning sensation, gait abnormalities, or tremors. ENT: No hearing loss, otalgia, otorrhea, rhinitis, rhinorrhea, hoarseness, or sore throat. CARDIOVASCULAR: Denies any exertional angina, dyspnea on exertion, orthopnea, paroxysmal nocturnal dyspnea, palpitations, life-threatening arrhythmias, claudication. Admits to Chest pain radiating to the back PULMONARY: Denies any phlegm/sputum, hemoptysis. Admits to shortness of breath, pleuritic chest pain, chronic cough SLEEP: Denies morning headaches, daytime somnolence or napping. Denies diff iculty falling asleep, staying asleep, waking from sleep. Denies knowledge of snoring. GASTROINTESTINAL: Denies any type of dysphagia to either liquids or solids. Denies nausea, vomiting, pyrosis, early satiety, abdominal pain, diarrhea, constipation, or changes in stool consistency or caliber. Denies coffee-ground emesis, hematemesis, hematochezia, or melanotic stools. GENITOURINARY: Denies frequency, urgency, nocturia, hematuria or incontinence (Storage/Irritative symptoms.) Low urinary stream, straining to void, urinary intermittency or hesitancy, splitting of the voiding stream, terminal dribbling. PAST MEDICAL HISTORY: Hypertension, diabetes mellitus type 2 , essential tremors PAST SURGICAL HISTORY: Appendectomy, hysterectomy, implants in eyes PAST SOCIAL HISTORY: Denies smoking, alcohol FAMILY HISTORY: [ ] Coded Allergies: codeine (Unverified Allergy, Unknown, 09/27/18) PHYSICAL EXAM GENERAL APPEARANCE: The patient is awake, alert, and oriented, in no acute cardiopulmonary distress. HEENT: Face is symmetric. Pupils are equal and reactive. Extraocular movements are intact. LUNGS: Absence of any rales, rhonchi or any wheezing. CARDIOVASCULAR: Regular. S1 and S2 normal. No appreciable rubs, murmurs or gallops. ABDOMEN: Soft, nontender, and nondistended. There is no rebound, voluntary guarding, or rigidity. : Deferred. No Ramos. EXTREMITIES: Non-edematous and not cyanotic. No clubbing. Good capillary refill. SKIN: No skin breakdown. Vital Sign (Last 24 Hours) 11/06/24 11/06/24 10:35 10:55 Temp 99.0 Pulse 69 Resp 14 B/P (MAP) 135/52 Pulse Ox 100 O2 Delivery Room Air* O2 Flow Rate 0 FiO2 21 LABS: Laboratory: Test 11/06/24 10:55 Range/Units White Blood Count 8.6 4.8-10.8 K/uL Red Blood Count 5.48 4.00-5.50 MIL/uL Hemoglobin 14.8 12.0-16.0 g/dL Hematocrit 46.7 36-48 % Mean Corpuscular Volume 85.2 79-99 fL Mean Corpuscular Hemoglobin 27.0 27.0-33.0 pg Mean Corpuscular Hemoglobin Concent 31.7 L 32.0-36.0 g/dL Red Cell Distribution Width 13.2 11.0-15.5 % Platelet Count 221 130-400 K/uL Mean Platelet Volume 10.1 7.5-10.5 fL Immature Granulocyte % (Auto) 0.5 0-1 % Neutrophils (%) (Auto) 56.3 40.0-77.0 % Lymphocytes (%) (Auto) 30.9 21.0-51.0 % Monocytes (%) (Auto) 9.0 3.0-13.0 % Eosinophils (%) (Auto) 2.3 0.0-8.0 % Basophils (%) (Auto) 1.0 0.0-5.0 % Neutrophils # (Auto) 4.9 1.8-7.7 K/uL Lymphocytes # (Auto) 2.7 1.0-4.8 K/uL Monocytes # (Auto) 0.8 0.1-1.0 K/uL Eosinophils # (Auto) 0.20 0.00-0.70 K/uL Basophils # (Auto) 0.09 0.00-0.20 K/uL Absolute Immature Granulocyte (auto 0.04 0-1 K/uL Nucleated Red Blood Cells 0.0 0.0-0.19 % Urine Color LIGHT-YELLOW YELLOW Urine Appearance CLEAR CLEAR Urine pH 7.0 5.0-8.0 Urine Specific [place] 1.011 1.001-1.031 Urine Protein NEGATIVE NEGATIVE mg/dL Urine Glucose (UA) >=1000 H NEGATIVE mg/dL Urine Ketones NEGATIVE NEGATIVE mg/dL Urine Occult Blood NEGATIVE NEGATIVE Urine Nitrate NEGATIVE NEGATIVE Urine Bilirubin NEGATIVE NEGATIVE mg/dL Urine Urobilinogen 0.2 0.2-1.0 mg/dL Urine Leukocyte Esterase NEGATIVE NEGATIVE Carlyle/uL Urine RBC 2-5 H 0-1 /HPF Urine WBC 0-1 0-1 /HPF Urine Squamous Epithelial Cells FEW 0-2 /HPF Urine Bacteria RARE None Seen /HPF Urine Hyaline Casts 2-5 H 0-1 /LPF /LPF Sodium Level 143 136-145 mmol/L Potassium Level 4.2 3.5-5.1 mmol/L Chloride Level 106 101-111 mmol/L Carbon Dioxide Level 31 21-32 mmol/L Blood Urea Nitrogen 12 7-18 mg/dL Creatinine 1.1 H 0.5-1.0 mg/dL Glomerular Filtration Rate Calc 53 >90 mL/min Random Glucose 100 70-105 mg/dL Total Calcium 8.4 L 8.5-10.1 mg/dL Troponin I High Sensitivity 19 4-50 ng/L Current Medications Medications (Trade) Dose Ordered Sig/Peter Route PRN Reason Start Time Stop Time Status Last Admin Dose Admin Aspirin (Aspirin 81mg Chew Tab) 81 mg DAILY PO 11/07/24 09:00 12/07/24 08:59 Dextrose (D50w) 50 ml AD PRN IV HYPOGLYCEMIA PROTOCOL 11/06/24 13:00 12/06/24 12:59 UNV Famotidine (Pepcid 20mg Vial) 20 mg DAILY IV 11/07/24 09:00 12/07/24 08:59 Glucagon (Glucagon 1mg Kit) 1 mg AD PRN IM HYPOGLYCEMIA PROTOCOL 11/06/24 13:00 12/06/24 12:59 UNV Insulin Human Regular (humuLIN R 100 UNIT/ML 3ML) INSULIN SLIDING SCAL... ACHS SQ 11/06/24 16:30 12/06/24 16:29 Magnesium Sulfate 50 ml @ 0 mls/hr PROTOCOL PRN IV mgprotocol 11/06/24 13:00 12/06/24 12:59 Nitroglycerin (Nitrostat) 0.4 mg AD PRN SL CHEST PAIN 11/06/24 12:30 12/06/24 12:29 Potassium Chloride 100 ml @ 50 mls/hr AD PRN IV POTASSIUM PROTOCOL 11/06/24 13:00 12/06/24 12:59 Potassium Chloride 100 ml @ 100 mls/hr AD PRN IV POTASSIUM PROTOCOL 11/06/24 13:00 12/06/24 12:59 Potassium Chloride (K-Dur/Klor-Con 20meq) 20 meq AD PRN PO POTASSIUM PROTOCOL 11/06/24 13:00 12/06/24 12:59 Potassium Chloride (KCl 10% Elixir 20meq/15ml) 20 meq AD PRN PO POTASSIUM PROTOCOL 11/06/24 13:00 12/06/24 12:59 DIAGNOSTICS / RADIOLOGY: IMAGING REPORT Signed PATIENT: IMAN JUAN MR#: [id number] : 1950 SEX: F AGE: 73 LOCATION: [facility] ORDER 34 STATUS: REG ER REPORT#: [id number] SERVICE [id number] REASON: CHEST PAIN ORDERING PHYSICIAN: STEVIE VICTORIA MD PROCEDURE: CXR1VW - CHEST 1VW CHEST 1VW REASON: CHEST PAIN COMPARISON: Study from 09/08/2022 is available. FINDINGS: Single view of the chest was obtained. Lungs are clear. Heart size is normal. There is no pulmonary vascular congestion. Mediastinum and bony thorax appear unremarkable. IMPRESSION: No evidence of airspace consolidation or pulmonary venous congestion. DICTATED BY: KEATON MONZON MD DATE: 11/06/24 115 ELECTRONICALLY SIGNED BY: KEATON MONZON MD DATE: 11/06/24 115 ASSESSMENT: Chest pain rule out ACS Hypertension Diabetes mellitus type 2 Essential tremors PLAN: Patient admitted to med/surg with tele Patient kept NPO Chest pain Cardiology has been consulted on the case Patient received 324mg aspirin ,sublingual nitroglycerin in the EMS Initial troponin is 19, plan to trend troponin q.6 H Patient will be started on aspirin 81 mg daily Follow up with the echocardiogram results Hypertension, diabetes mellitus type 2, essential tremor Patient is started on hyperglycemia and hypoglycemia protocols. We will monitor the glucose Patient's home medications will be reconciled and reviewed GI prophylaxis with famotidine DVT prophylaxis with SCDs Further course of hospitalization depending on Cardiology recommendations, interventions and clinical response ATTESTATION BY PHYSICIAN I have seen and examined the patient. I reviewed the documentation, medical decision making, and treatment plan as noted by the resident provider above. I agree with the findings and plan of care. I agree with A&P as stated by the resident physician. Pt admitted secondary to chest pain. Pt had episode of midsternal chest paddy while resting. Pt was persistent until patient arrived to the hospital. Pt denied any fever,chills, abdominal pain, nausea, vomiting. She sees cardiology as outpt. Will trend troponin q6h to rule out ACS. Secondary to patients cardiac risk factors will request cardiology consultation. Trev Bush MD, KEERTI K MD Nov 06, 2024 12:39 TREV BUSH MD Nov 07, 2024 06:34
[2024-11-06] MEDS ORDERED: PoTASSium chloRIDE 20MEQ ER 20 MEQ ERTAB PO PRN (13:00)
[2024-11-06] MEDS ORDERED: GLUCAGON 1MG KIT 1 MG ML IM PRN (13:00)
[2024-11-06] MEDS ORDERED: DEXTROSE 50%-WATER 50 ML DISP.SYRIN IV PRN (13:00)
[2024-11-06] MEDS ORDERED: MAGNESIUM 2GM PREMIX 50ML 50 ML IV PRN (13:00)
[2024-11-06] MEDS ORDERED: PoTASSium chl 10% ELIXIR 20MEQ 20 MEQ/15 ML UDCUP PO PRN (13:00)
[2024-11-06] MEDS: 0.9%NACL 1000ML 1,000 ML IV ONE (13:24)
[2024-11-06] MEDS ORDERED: DAPA5TAB PO (13:35)
[2024-11-06] MEDS ORDERED: CYCL30DR OP (13:35)
[2024-11-06] MEDS ORDERED: SEMA3TAB4 PO (13:35)
[2024-11-06] MEDS ORDERED: PANT20TA18 PO (13:35)
[2024-11-06] MEDS ORDERED: GABA-529 PO (13:35)
[2024-11-06] MEDS ORDERED: CYCL30DR OS (13:35)
--- NOTE | 2024-11-06 13:35 | NUR ---
MEDICATIONS RECONCILED
--- NOTE | 2024-11-06 14:00 | NUR ---
Assumed patients care.
--- NOTE | 2024-11-06 14:04 | NUR ---
DCP:HOME Pt currently lives at home with sps Rolf Rowe [phone]. Pt does have a walker that she uses at home. pt does have a provider that assists her 3.5 hrs daily with all ADLs, home management, and meals. PCP is Dr Thelma Mays and uses [facility] for RX needs. At [place] pt will want to go home and family will assist with transportation. Addendum: 11/06/24 at 1408 by ESTUARDO KNIGHT SS Amended: Links added.
--- NOTE | 2024-11-06 14:05 | EKG ---
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
--- NOTE | 2024-11-06 14:26 | NUR ---
Home medications in system , already reconsiled by admiting physician.
--- NOTE | 2024-11-06 15:24 | CONS ---
Cardiac Consult Note CONSULT NOTE DATE OF SERVICE: Nov 06, 2024 at 10:33 REFERRING PROVIDER: DELFINA WILLAMS MD REASON FOR CONSULT: Chest pain HPI: Ms. Rowe is a 73-year-old female who states she was in her usual state of health throughout the week with no symptoms but states this morning when she was awoken by significant chest pressure and tightness which lasted sev eral minutes associated with diaphoresis and some shortness of breath. Patient was concerned and decided to come to the emergency room for further evaluation and care. Patient has since had 2 cardiac enzymes that have been normal. EKG reveals nonspecific changes. There was no evidence of significant ischemia or injury. Patient denies any prior history of myocardial infarction CVA TIA. Patient does have a longstanding history of diabetes mellitus and hypertension. She does take appropriate medications. Patient denies any prior history of coronary artery bypass grafting or coronary artery stents. ROS: No fever, headache, chest pain, abdominal pain, nausea, vomiting, or diarrhea. PMHX: Diabetes Hypertension Dyslipidemia Negative for nicotine use PSHX: Noncontributory FH: Patient states her mother had a heart attack and at the age of 50 SOCIAL: No tobacco alcohol illicit drug use PHYSICAL EXAMINATION: GENERAL: No acute distress. HEENT: Normocephalic, atraumatic. CARDIAC: Positive S1 and S2. No murmurs. LUNGS: Clear to auscultation bilaterally. ABDOMEN: Bowel sounds present, soft, nontender. EXTREMITIES: No edema bilaterally. NEUROLOGIC: Cranial nerves 2-12 grossly intact. PSYCHIATRIC: Calm. ASSESSMENT: Chest pain Diabetes mellitus Hypertension Dyslipidemia Family history of coronary artery disease PLAN: At this time patient has since had 2-cardiac enzymes and I think with her comorbidities it would be reasonable to keep patient in the hospital and proceed with noninvasive testing to include a Lexiscan Cardiolite. I would also like to schedule patient for a 2D echocardiogram. Would initiate and maintain continuing guideline directed medical therapy. Further recommendations to follow pending results of studies which will be scheduled for tomorrow. All questions have been answered. We will continue to follow along. Vital Signs 11/06/24 11/06/24 11/06/24 11/06/24 10:35 10:55 12:40 14:00 Temp 99.0 99.0 99.0 98.1 Pulse 72 69 56 67 Resp 20 14 14 12 B/P (MAP) 102/83 135/52 118/54 108/82 Pulse Ox 99 100 99 98 O2 Delivery Nasal Cannula Room Air* Room Air* Room Air* O2 Flow Rate 2.0 0 0 0 FiO2 Laboratory Tests Test 11/06/24 10:55 11/06/24 13:24 White Blood Count 8.6 K/uL (4.8-10.8) Red Blood Count 5.48 MIL/uL (4.00-5.50) Hemoglobin 14.8 g/dL (12.0-16.0) Hematocrit 46.7 % (36-48) Mean Corpuscular Volume 85.2 fL (79-99) Mean Corpuscular Hemoglobin 27.0 pg (27.0-33.0) Mean Corpuscular Hemoglobin Concent 31.7 g/dL (32.0-36.0) Red Cell Distribution Width 13.2 % (11.0-15.5) Platelet Count 221 K/uL (130-400) Mean Platelet Volume 10.1 fL (7.5-10.5) Immature Granulocyte % (Auto) 0.5 % (0-1) Neutrophils (%) (Auto) 56.3 % (40.0-77.0) Lymphocytes (%) (Auto) 30.9 % (21.0-51.0) Monocytes (%) (Auto) 9.0 % (3.0-13.0) Eosinophils (%) (Auto) 2.3 % (0.0-8.0) Basophils (%) (Auto) 1.0 % (0.0-5.0) Neutrophils # (Auto) 4.9 K/uL (1.8-7.7) Lymphocytes # (Auto) 2.7 K/uL (1.0-4.8) Monocytes # (Auto) 0.8 K/uL (0.1-1.0) Eosinophils # (Auto) 0.20 K/uL (0.00-0.70) Basophils # (Auto) 0.09 K/uL (0.00-0.20) Absolute Immature Granulocyte (auto 0.04 K/uL (0-1) Nucleated Red Blood Cells 0.0 % (0.0-0.19) Urine Color LIGHT-YELLOW (YELLOW) Urine Appearance CLEAR (CLEAR) Urine pH 7.0 (5.0-8.0) Urine Specific [place] 1.011 (1.001-1.031) Urine Protein NEGATIVE mg/dL (NEGATIVE) Urine Glucose (UA) >=1000 mg/dL (NEGATIVE) Urine Ketones NEGATIVE mg/dL (NEGATIVE) Urine Occult Blood NEGATIVE (NEGATIVE) Urine Nitrate NEGATIVE (NEGATIVE) Urine Bilirubin NEGATIVE mg/dL (NEGATIVE) Urine Urobilinogen 0.2 mg/dL (0.2-1.0) Urine Leukocyte Esterase NEGATIVE Carlyle/uL Urine RBC 2-5 /HPF (0-1) Urine WBC 0-1 /HPF (0-1) Urine Squamous Epithelial Cells FEW /HPF (0-2) Urine Bacteria RARE /HPF (None Seen) Urine Hyaline Casts 2-5 /LPF (0-1 /LPF) Sodium Level 143 mmol/L (136-145) Potassium Level 4.2 mmol/L (3.5-5.1) Chloride Level 106 mmol/L (101-111) Carbon Dioxide Level 31 mmol/L (21-32) Blood Urea Nitrogen 12 mg/dL (7-18) Creatinine 1.1 mg/dL (0.5-1.0) Glomerular Filtration Rate Calc 53 mL/min (>90) Random Glucose 100 mg/dL (70-105) Hemoglobin A1c 5.6 % (4.0-6.0) Estimated Average Glucose (eAG) 114 mg/dL (70-126) Total Calcium 8.4 mg/dL (8.5-10.1) Troponin I High Sensitivity 19 ng/L (4-50) 17 ng/L (4-50) Thyroid Stimulating Hormone (TSH) 0.89 uIU/mL (0.36-3.74) Current Medications Medications Dose Ordered Sig/Peter Route PRN Reason Start Time Stop Time Status Last Admin Sodium Chloride 1,000 ml @ 0 mls/hr ONCE ONCE IV 11/06/24 12:00 11/06/24 12:05 DC 11/06/24 13:24 Famotidine 20 mg DAILY IV 11/07/24 09:00 12/07/24 08:59 Aspirin 81 mg DAILY PO 11/07/24 09:00 12/07/24 08:59 Insulin Human Regular INSULIN SLIDING SCAL... ACHS SQ 11/06/24 16:30 12/06/24 16:29 Amlodipine Besylate 5 mg DAILY PO 11/07/24 09:00 12/07/24 08:59 Gabapentin 100 mg TID PO 11/06/24 21:00 12/06/24 20:59 Ropinirole HCl 0.25 mg BID PO 11/06/24 21:00 12/06/24 20:59 Home Med 1 each DAILY OP 11/07/24 09:00 12/07/24 08:59 Losartan Potassium 100 mg DAILY PO 11/07/24 09:00 12/07/24 08:59 Reported Medications Cyclosporine (Restasis) 0.05 % Droperette, 1 DROP OS DAILY for 30 Days, #60 EACH 0 Refills 11/06/24 Cyclosporine (Restasis) 0.05 % Droperette, 1 DROP OP DAILY for 30 Days, #60 EACH 0 Refills 11/06/24 Semaglutide (Rybelsus) 3 Mg Tablet, 1 TAB PO DAILY for 30 Days, #30 TAB 0 Refills 11/06/24 Pantoprazole Sodium (Pantoprazole Sodium) 20 Mg Tablet.dr, 1 TAB PO DAILY for 30 Days, #30 TAB 0 Refills 11/06/24 Gabapentin (Gabapentin) 100 Mg Capsule, 1 CAP PO TID for 30 Days, #90 CAP 0 Refills 11/06/24 Dapagliflozin Propanediol (Farxiga) 5 Mg Tablet, 1 TAB PO DAILY for 30 Days, #30 TAB 0 Refills 11/06/24 Ropinirole HCl (Ropinirole HCl) 0.25 Mg Tablet, 0.25 MG PO BID for 1 tab in am, 2 tab hs , TAB 09/08/22 Olmesartan Medoxomil (Olmesartan Medoxomil) 40 Mg Tablet, 40 MG PO DAILY, TAB 09/08/22 Amlodipine Besylate (Amlodipine Besylate) 5 Mg Tablet, 5 MG PO DAILY, TAB 09/08/22 Discontinued Reported Medications Gabapentin (Gabapentin) 100 Mg Capsule, 200 MG PO TID for SCIATICA PAIN, CAP 09/08/22 Propranolol HCl (Propranolol HCl) 40 Mg Tablet, 40 MG PO DAILY, TAB 09/08/22 Tramadol Hcl (Tramadol HCl) 50 Mg Tablet, 50 MG PO BID PRN for PAIN, TAB 09/08/22 Scopolamine (Transderm-Scop) 1 Each Patch.td.3, 1 EACH TD ONCE PRN for 1 every 3 days for vertigo 09/08/22 Dexlansoprazole (Dexlansoprazole Dr) 30 Mg Cap..bp, 30 MG PO DAILY 09/08/22 DELFINA WILLAMS MD Nov 06, 2024 15:24
--- NOTE | 2024-11-06 15:36 | NUR ---
Called [facility], spoke to Mr. Ortez, notify him of Traci scan order for patient. Consent was optained.
--- NOTE | 2024-11-06 16:27 | NUR ---
Called Mr. Guy to give report. He stated room 425 has a patient there and room is still dirty. Did not give report. Notify charge nurse Mrs. Thelma BOSE ED.
--- NOTE | 2024-11-06 18:06 | NUR ---
Called Mr. Brooks BOSE and gave him report. Discussed plan of care, labs, imaging and pending consults.
--- NOTE | 2024-11-06 18:25 | NUR ---
PT arrived on unit via stretcher accompanied by nurse and son. A&O x3 able to make needs known. denies pain or discomfort. PERRLA. resp = and unlabored bilat, lungs CTA x 4 lobes. abdomen soft and flat, + bowel sounds x 4 quads. BUE pulses = & strong cap refill 2 seconds. BLE pulses = &strong cap refill 2 secs. educated on use of bed remote call light and hospital environment.
[2024-11-06 19:45] VITALS: BP 132/65; PULSE 59; RESP 18; TEMP 97.7
[2024-11-06 23:51] VITALS: BP 109/61; PULSE 58; RESP 18; TEMP 98
[2024-11-07 03:51] VITALS: BP 107/56; PULSE 56; RESP 18; TEMP 98.2
[2024-11-07 04:25] LABS: IMMATURE GRANULOCYTE ABSOLUTE 0.03 K/uL (0-1); NUCLEATED RED BLOOD CELLS 0.0 % (0.0-0.19); PLATELET COUNT (AUTO) 170 K/uL (130-400); RED BLOOD CELL COUNT(AUTO) 4.99 MIL/uL (4.00-5.50); RED CELL DISTRIBUTION WIDTH 13.2 % (11.0-15.5); WHITE BLOOD COUNT (AUTO) 8.5 K/uL (4.8-10.8)
[2024-11-07 04:33] LABS: CREATININE 1.2 mg/dL (0.5-1.0); GLOMERULAR FILTR. RATE CALC 48.0 mL/min (>90); GLUCOSE,RANDOM 85.0 mg/dL (70-105); SODIUM SERUM 145.0 mmol/L (136-145); UREA NITROGEN, BLOOD 10.0 mg/dL (7-18)
[2024-11-07 08:00] VITALS: BP 115/56; PULSE 49; RESP 16; TEMP 98; O2SAT 97
[2024-11-07] MEDS: FAMOTIDINE 20MG VIAL IV SCH (08:45)
[2024-11-07] MEDS: CYCLOSPORINE 0.05% OP SCH (08:51)
[2024-11-07] MEDS: ASPIRIN 81MG CHEW TAB PO SCH (09:00)
[2024-11-07] MEDS: amLODIPine 5 MG TAB PO SCH (09:00)
[2024-11-07] MEDS: REGADENOSON 0.4 MG/5 ML PF SYG IVP ONE (11:40)
[2024-11-07 12:00] VITALS: BP 135/65; PULSE 62; RESP 16; TEMP 98.2
[2024-11-07 16:00] VITALS: BP 121/72; PULSE 55; RESP 17; TEMP 98.2
--- NOTE | 2024-11-07 16:34 | HMCSR ---
APPROVED REPORT EXAM: Two-dimensional and M-mode echocardiogram with Doppler and color Doppler. Study Details: HTN , DM , CP INDICATION ICD: Chest Pain 2D Dimensions RVDd3.1 cmLVEF(%)87.1 (>50%)LVED Vol(simp.)69.3 mL IVSd0.8 (0.7-1.1cm)FS(%)57 %LVES Vol(simp.)21.6 mL LVDd4.5 (3.8-5.6cm)LA (2D)3.4 (1.6-4.0cm)LVEF(%, simp.)69 % PWd0.9 (0.7-1.1cm)Ao Root(2D)2.9 (2.0-3.7cm)LA ESV INDEX (BP)26.24 mL/m2 IVSs1.4 cmLVOT diam1.6 (1.8-2.4cm) LVDs2.0 (2.5-4.0cm) PWs1.6 cm Deformation Strain Apical 4-22.3 % Apical 2-18.4 % Apical 3-21.3 % Global Strain-20.7 % M-Mode Dimensions EPSS0.4 cm LA (MM)3.9 (1.6-4.0cm) Ao Root(MM)2.1 (2.0-3.7cm) Aortic Valve AoV Vmax1.6 m/Lia Peak GR9.7 mmHgLVOT Vmax0.8 m/s AoV VTI0.4 mAo Mean GR4.6 mmHgLVOT VTI0.22 m WILLIAM (VMAX)1.04 cm2AVA (VTI) 1.2 cm2 Mitral Valve MV E Vmax76.5 cm/sDECEL Onky968 ms MV A Vmax85.7 cm/sP 1/2 T69 ms E/A ratio0.9MVA (PHT)3.2 cm2 TDI E/E' Mtrwzl92.4E/E' Zkfmcpb23.4 Medial E' Peak V6.15 cm/sLateral E' Peak V7.38 cm/s Pulmonary Valve PV Vmax0.9 m/sPV VTI0.25 mPV Mean GR1.7 mmHg PV Peak GR3.2 mmHg Tricuspid Valve TR Vmax2.6 m/sRVSP26.2 mmHg TR Peak GR28.8 mmHg Left Ventricle The left ventricle is normal size. There is normal LV segmental wall motion. There is normal left gee tricular wall thickness. LVEF is 55-60%. The left ventricular diastolic function is normal. Right Ventricle The right ventricle is normal size. The right ventricular systolic function is normal. Atria The left atrium size is normal. The interatrial septum is intact with no evidence for an atrial septa l defect. The atrial septum is aneurysmal. The right atrium size is normal. Aortic Valve The aortic valve is normal in structure. Aortic valve is trileaflet. Trivial aortic regurgitation. Th ere is no aortic valvular stenosis. Mitral Valve The mitral valve is normal in structure. Mitral regurgitation is trace. There is no mitral valve sten osis. Tricuspid Valve The tricuspid valve is normal in structure. Mild tricuspid regurgitation. There is no tricuspid valve stenosis. Pulmonic Valve The pulmonary valve is normal in structure. There is trace pulmonic valvular regurgitation. Great Vessels The aortic root is normal in size. The ascending aorta is normal in size. The IVC is normal in size a nd collapses >50% with inspiration. Pericardium No pericardial effusion. Other Information Quality : GoodRhythm : NSR Conclusion LVEF is 55-60%. The left ventricular diastolic function is normal. The atrial septum is aneurysmal. Trivial aortic regurgitation. Mild tricuspid regurgitation.
--- NOTE | 2024-11-07 16:38 | PN ---
[facility] PROGRESS NOTE Date of Service: Nov 07, 2024 Time of Service: 16:00 SUBJECTIVE: Patient is a 73-year-old female with past medical history of hypertension, diabetes mellitus type 2, essential tremors, chronic cough brought to the ED by EMS with chief complaint of chest pain. Chest pain radiating to the back which is sharp/pressure in nature started 1 hour ago before reaching the ED which was relieved with sublingual nitroglycerin administered by EMS. No aggravating or relieving factors. Patient also have associated shortness of breath, sweating, pleuritic chest pain. Patient denies fevers, chills, nausea, vomiting. Patient received aspirin 324 mg and nitroglycerin 0.[address] to the ED. Patient vitals temperature 99, pulse 56, respiratory rate 14, blood pressure 118/54 and saturating at 99% on room air Patient's labs shows sodium 143, potassium 4.2, creatinine 1.1, BUN 12, glucose 100 and troponin is 19. Chest x-ray reports no significant findings Patient is being admitted with a diagnosis of chest pain to rule out ACS. We will trend the troponins q.6 and cardiology has been consulted on the case . 11/07/24: Patient is seen in room no 425 at bedside, she is awake, alert, oriented. Patient said her pain is relieved and she is feeling better compared to yesterday .Cardiology consultation has been done and advised to keep the patient in the hospital and Lexiscan test and 2D Echocardiogram results are pending. Patient started on heart healthy diet. Patient started on Losartan 100mg daily. Patient Na-147, Cl-112. Urinalysis revealed hyaline casts and RBC in urine. Patient is hemodynamically stable and will be monitored closely. REVIEW OF SYSTEMS CONSTITUTIONAL: Denies fevers, chills, or night sweats. No unintentional weight loss reported. Admitted diaphoresis during the episode of chest pain NEUROLOGICAL: Denies headache, amaurosis fugax, motor weakness, sensory deficit, vertigo/spinning sensation, gait abnormalities, or tremors. ENT: No hearing loss, otalgia, otorrhea, rhinitis, rhinorrhea, hoarseness, or so re throat. CARDIOVASCULAR: Denies any exertional angina, dyspnea on exertion, orthopnea, paroxysmal nocturnal dyspnea, palpitations, life-threatening arrhythmias, claudication. Admits to Chest pain radiating to the back PULMONARY: Denies any phlegm/sputum, hemoptysis. Admits to shortness of breath, pleuritic chest pain, chronic cough SLEEP: Denies morning headaches, daytime somnolence or napping. Denies difficulty falling asleep, staying asleep, waking from sleep. Denies knowledge of snoring. GASTROINTESTINAL: Denies any type of dysphagia to either liquids or solids. Denies nausea, vomiting, pyrosis, early satiety, abdominal pain, diarrhea, constipation, or changes in stool consistency or caliber. Denies coffee-ground emesis, hematemesis, hematochezia, or melanotic stools. GENITOURINARY: Denies frequency, urgency, nocturia, hematuria or incontinence (Storage/Irritative symptoms.) Low urinary stream, straining to void, urinary intermittency or hesitancy, splitting of the voiding stream, terminal dribbling. PHYSICAL EXAM GENERAL APPEARANCE: The patient is awake, alert, and oriented, in no acute cardiopulmonary distress. HEENT: Face is symmetric. Pupils are equal and reactive. Extraocular movements are intact. LUNGS: Absence of any rales, rhonchi or any wheezing. CARDIOVASCULAR: Regular. S1 and S2 normal. No appreciable rubs, murmurs or gallops. ABDOMEN: Soft, nontender, and nondistended. There is no rebound, voluntary guarding, or rigidity. : Deferred. No Ramos. EXTREMITIES: Non-edematous and not cyanotic. No clubbing. Good capillary refill. SKIN: No skin breakdown. Vital Signs (last 8hr) Date Time Temp Pulse Resp B/P (MAP) Pulse Ox O2 Delivery O2 Flow Rate FiO2 11/07/24 12:00 98.2 62 16 135/65 97 Room Air LABS: Laboratory: Test 11/07/24 12:12 11/07/24 03:58 11/07/24 00:36 11/06/24 10:55 Range/Units Whole Blood Glucose 82 70-110 MG/DL White Blood Count 8.5 4.8-10.8 K/uL Red Blood Count 4.99 4.00-5.50 MIL/uL Hemoglobin 13.5 12.0-16.0 g/dL Hematocrit 42.2 36-48 % Mean Corpuscular Volume 84.6 79-99 fL Mean Corpuscular Hemoglobin 27.1 27.0-33.0 pg Mean Corpuscular Hemoglobin Concent 32.0 32.0-36.0 g/dL Red Cell Distribution Width 13.2 11.0-15.5 % Platelet Count 170 130-400 K/uL Mean Platelet Volume 10.2 7.5-10.5 fL Immature Granulocyte % (Auto) 0.4 0-1 % Neutrophils (%) (Auto) 55.7 40.0-77.0 % Lymphocytes (%) (Auto) 31.6 21.0-51.0 % Monocytes (%) (Auto) 9.2 3.0-13.0 % Eosinophils (%) (Auto) 2.5 0.0-8.0 % Basophils (%) (Auto) 0.6 0.0-5.0 % Neutrophils # (Auto) 4.7 1.8-7.7 K/uL Lymphocytes # (Auto) 2.7 1.0-4.8 K/uL Monocytes # (Auto) 0.8 0.1-1.0 K/uL Eosinophils # (Auto) 0.21 0.00-0.70 K/uL Basophils # (Auto) 0.05 0.00-0.20 K/uL Absolute Immature Granulocyte (auto 0.03 0-1 K/uL Nucleated Red Blood Cells 0.0 0.0-0.19 % Sodium Level 145 136-145 mmol/L Potassium Level 4.6 3.5-5.1 mmol/L Chloride Level 110 101-111 mmol/L Carbon Dioxide Level 29 21-32 mmol/L Blood Urea Nitrogen 10 7-18 mg/dL Creatinine 1.2 H 0.5-1.0 mg/dL Glomerular Filtration Rate Calc 48 >90 mL/min Random Glucose 85 70-105 mg/dL Total Calcium 8.4 L 8.5-10.1 mg/dL B-Type Natriuretic Peptide 116 H 0-100 pg/mL Troponin I High Sensitivity 23 4-50 ng/L Urine Color LIGHT-YELLOW YELLOW Urine Appearance CLEAR CLEAR Urine pH 7.0 5.0-8.0 Urine Specific [place] 1.011 1.001-1.031 Urine Protein NEGATIVE NEGATIVE mg/dL Urine Glucose (UA) >=1000 H NEGATIVE mg/dL Urine Ketones NEGATIVE NEGATIVE mg/dL Urine Occult Blood NEGATIVE NEGATIVE Urine Nitrate NEGATIVE NEGATIVE Urine Bilirubin NEGATIVE NEGATIVE mg/dL Urine Urobilinogen 0.2 0.2-1.0 mg/dL Urine Leukocyte Esterase NEGATIVE NEGATIVE [place]/uL Urine RBC 2-5 H 0-1 /HPF Urine WBC 0-1 0-1 /HPF Urine Squamous Epithelial Cells FEW 0-2 /HPF Urine Bacteria RARE None Seen /HPF Urine Hyaline Casts 2-5 H 0-1 /LPF /LPF Hemoglobin A1c 5.6 4.0-6.0 % Estimated Average Glucose (eAG) 114 70-126 mg/dL Thyroid Stimulating Hormone (TSH) 0.89 # 0.36-3.74 uIU/mL Current Medications Medications (Trade) Dose Ordered Sig/Peter Route PRN Reason Start Time Stop Time Status Last Admin Dose Admin Amlodipine Besylate (NorvASC 5MG TAB) 5 mg DAILY PO 11/07/24 09:00 12/07/24 08:59 Aspirin (Aspirin 81mg Chew Tab) 81 mg DAILY PO 11/07/24 09:00 12/07/24 08:59 Dextrose (D50w) 50 ml AD PRN IV HYPOGLYCEMIA PROTOCOL 11/06/24 13:00 12/06/24 12:59 Famotidine (Pepcid 20mg Vial) 20 mg DAILY IV 11/07/24 09:00 12/07/24 08:59 11/07/24 08:45 20 MG Gabapentin (NEURontin 100 mg CAP) 100 mg TID PO 11/06/24 21:00 12/06/24 20:59 11/07/24 15:26 100 MG Glucagon (Glucagon 1mg Kit) 1 mg AD PRN IM HYPOGLYCEMIA PROTOCOL 11/06/24 13:00 12/06/24 12:59 Home Med (Home Medication) 1 each DAILY OP 11/07/24 09:00 12/07/24 08:59 11/07/24 08:51 1 EACH Insulin Human Regular (humuLIN R 100 UNIT/ML 3ML) INSULIN SLIDING SCAL... ACHS SQ 11/06/24 16:30 12/06/24 16:29 Losartan Potassium (CozAAR 100MG TAB) 100 mg DAILY PO 11/07/24 09:00 12/07/24 08:59 Magnesium Sulfate 50 ml @ 0 mls/hr PROTOCOL PRN IV mgprotocol 11/06/24 13:00 12/06/24 12:59 Nitroglycerin (Nitrostat) 0.4 mg AD PRN SL CHEST PAIN 11/06/24 12:30 12/06/24 12:29 Potassium Chloride 100 ml @ 50 mls/hr AD PRN IV POTASSIUM PROTOCOL 11/06/24 13:00 12/06/24 12:59 Potassium Chloride 100 ml @ 100 mls/hr AD PRN IV POTASSIUM PROTOCOL 11/06/24 13:00 12/06/24 12:59 Potassium Chloride (K-Dur/Klor-Con 20meq) 20 meq AD PRN PO POTASSIUM PROTOCOL 11/06/24 13:00 12/06/24 12:59 Potassium Chloride (KCl 10% Elixir 20meq/15ml) 20 meq AD PRN PO POTASSIUM PROTOCOL 11/06/24 13:00 12/06/24 12:59 Ropinirole HCl (ropiNIRole HCL) 0.25 mg BID PO 11/06/24 21:00 12/06/24 20:59 11/06/24 20:27 0.25 MG DIAGNOSTICS / RADIOLOGY: [ ] ASSESSMENT: Chest pain rule out ACS Hypertension Diabetes mellitus type 2 Essential tremors PLAN: Patient is started on Heart healthy diet. Chest pain Patient is continuing on aspirin 81 mg daily Lexiscan cardiolite test and 2D Echo results are pending. BNP levels were ordered. Awaiting cardiology recommendations. Hypertension, diabetes mellitus type 2, essential tremor Patient continuing on hyperglycemia and hypoglycemia protocols. We are monitoring the glucose Patient's home medications are reconciled and reviewed GI prophylaxis with famotidine DVT prophylaxis with SCDs Further course of hospitalization depending on Cardiology recommendations, i nterventions and clinical response ATTESTATION BY PHYSICIAN I have seen and examined the patient. I reviewed the documentation, medical decision making, and treatment plan as noted by the mid-level provider above. I agree with the findings and plan of care. jagdish Oconnor MD, HARSHA MD Nov 07, 2024 16:37
--- NOTE | 2024-11-07 16:40 | HMCSR ---
APPROVED REPORT Height: 5 ft 1in Weight: 162 lbs TEST INDICATIONS CAD, Chest Pain The imaging protocol used to acquire images was Rest Tc-99m/stress Tc-99m 1 day Consent: The procedure was explained and understood by the patient. Informerd consent was witnessed Fidencio Falk RN First, low dose rest was performed then high dose stress. RESTING DATA: The resting ekg shows: NSR Rest SPECT myocardial perfusion imaging was performed in supine position minutes following the intra venous injection of 11 mCi of Tc-99 Sestamibi. Time of rest injection: 10:20: Date: 11/07/2024 PHARMACOLOGIC STRESS: Pharmacologic stress test was performed by injecting regadenoson 0.4 mg IV push followed by the intra venous injection of 28 mCi of Tc-99 Sestamibi. Time of stress injection: 11:45: Date: 11/07/2024 Heart Rate at time of stress injection: 47 bpm. Gated Stress SPECT was performed 60 minutes after stress injection. The images were gated to evaluate regional wall motion and calculate left ventricular ejection fracti on. STRESS DETAILS Reason for Termination: Infusion complete Stress Symptoms: Stomach Pain Max HR Achieved: 86 bpm % of APMHR Achieved: 69 Max Blood Pressure: 148/67 mmHg Stress ECG: NSR Arrhythmia: No. ST Change: No. Study quality was good. Lung uptake was Normal. Artifact: No artifact LEFT VENTRICLE Size: The left ventricular size is normal. Systolic Function:The left ventricular systolic function is normal. Wall Motion: No regional wall motion abnormalities noted. The left ventricular ejection fraction was calculated to be 78%.TID = 1.45. LV PERFUSION Small size mild severity reversible perfusion defect of the apical inferolateral segment. RV Size/Shape Not well visualized. IMPRESSION Mildly abnormal pharmacologic nuclear stress test. Conclusion Small size mild severity reversible perfusion defect of the apical inferolateral segment. Summed stre ss score of 5. Although interpretation is that TID is elevated at 1.45, this is incorrect due to misalignemnt of the images. Visually, there is no TID Normal LVSF with EF hyperdynamic 78% Overall, results indicate low risk for cardiac events.
--- NOTE | 2024-11-07 17:19 | PN ---
The patient is here with chest pain and negative cardiac enzymes. She has undergone workup including an echocardiogram and a Lexiscan Cardiolite stress test. These are pending interpretation. The patient has no prior cardiac history. She does have type 2 diabetes and hypertension. Meanwhile, the patient feels well and has had no further chest pain. Impression: 1. Chest pain, possibly cardiac 2. Type 2 diabetes 3. Hypertension Plan: 1. We will await the results of the echocardiogram and Lexiscan stress test 2. If these are unremarkable then the patient can be discharged home. Vitals/Labs Vital Signs Date Time Temp Pulse Resp B/P (MAP) Pulse Ox O2 Delivery O2 Flow Rate FiO2 11/07/24 12:00 98.2 62 16 135/65 97 Room Air 11/07/24 03:51 21 11/06/24 18:01 0 Laboratory Tests 11/07/24 03:58 CHARI NICOLE MD Nov 07, 2024 17:19
[2024-11-07 19:20] VITALS: O2SAT 95
[2024-11-07 20:00] VITALS: BP 143/71; PULSE 54; RESP 19; TEMP 97.6
[2024-11-08] VITALS: BP 114/52; PULSE 55; RESP 16; TEMP 98.7
[2024-11-08 04:00] VITALS: BP 108/54; PULSE 53; RESP 18; TEMP 98.5
[2024-11-08 05:04] LABS: IMMATURE GRANULOCYTE ABSOLUTE 0.03 K/uL (0-1); NUCLEATED RED BLOOD CELLS 0.0 % (0.0-0.19); PLATELET COUNT (AUTO) 175 K/uL (130-400); RED BLOOD CELL COUNT(AUTO) 5.08 MIL/uL (4.00-5.50); RED CELL DISTRIBUTION WIDTH 13.0 % (11.0-15.5); WHITE BLOOD COUNT (AUTO) 8.2 K/uL (4.8-10.8)
[2024-11-08 05:33] LABS: CREATININE 0.9 mg/dL (0.5-1.0); GLOMERULAR FILTR. RATE CALC 67.0 mL/min (>90); GLUCOSE,RANDOM 78.0 mg/dL (70-105); SODIUM SERUM 142.0 mmol/L (136-145); UREA NITROGEN, BLOOD 11.0 mg/dL (7-18)
[2024-11-08 08:00] VITALS: BP 137/65; PULSE 52; RESP 16; TEMP 97.8; O2SAT 98
[2024-11-08 12:00] VITALS: BP 124/62; PULSE 54; RESP 17; TEMP 98.3
--- NOTE | 2024-11-08 14:27 | PN ---
[facility] CARDIOLOGY PROGRESS NOTE Date Patient Seen: Nov 08, 2024 Time of Visit: 14:23 Interval History: The patient denies chest pain or dyspnea. She feels well. She had an echocardiogram yesterday which was normal LV systolic function with EF 55-60%, and aneurysmal atrial septum, and mild tricuspid regurgitation. She also had a Lexiscan Cardiolite stress test which showed a small size mild severity reversible perfusion defect of the apical inferolateral segment and no wall motion abnormalities. Is considered a low risk scan. Laboratory: [ ] Hematology Labs: Test 11/08/24 04:06 Range/Units White Blood Count 8.2 4.8-10.8 K/uL Red Blood Count 5.08 4.00-5.50 MIL/uL Hemoglobin 13.8 12.0-16.0 g/dL Hematocrit 42.0 36-48 % Mean Corpuscular Volume 82.7 79-99 fL Mean Corpuscular Hemoglobin 27.2 27.0-33.0 pg Mean Corpuscular Hemoglobin Concent 32.9 32.0-36.0 g/dL Red Cell Distribution Width 13.0 11.0-15.5 % Platelet Count 175 130-400 K/uL Mean Platelet Volume 10.3 7.5-10.5 fL Immature Granulocyte % (Auto) 0.4 0-1 % Neutrophils (%) (Auto) 55.8 40.0-77.0 % Lymphocytes (%) (Auto) 31.3 21.0-51.0 % Monocytes (%) (Auto) 8.9 3.0-13.0 % Eosinophils (%) (Auto) 3.1 0.0-8.0 % Basophils (%) (Auto) 0.5 0.0-5.0 % Neutrophils # (Auto) 4.6 1.8-7.7 K/uL Lymphocytes # (Auto) 2.6 1.0-4.8 K/uL Monocytes # (Auto) 0.7 0.1-1.0 K/uL Eosinophils # (Auto) 0.25 0.00-0.70 K/uL Basophils # (Auto) 0.04 0.00-0.20 K/uL Absolute Immature Granulocyte (auto 0.03 0-1 K/uL Nucleated Red Blood Cells 0.0 0.0-0.19 % Chemistry Labs: Test 11/08/24 11:16 11/08/24 04:06 11/07/24 03:58 11/07/24 00:36 Range/Units Whole Blood Glucose 93 70-110 MG/DL Sodium Level 142 136-145 mmol/L Potassium Level 4.1 3.5-5.1 mmol/L Chloride Level 106 101-111 mmol/L Carbon Dioxide Level 27 21-32 mmol/L Blood Urea Nitrogen 11 7-18 mg/dL Creatinine 0.9 0.5-1.0 mg/dL Glomerular Filtration Rate Calc 67 >90 mL/min Random Glucose 78 70-105 mg/dL Total Calcium 8.6 8.5-10.1 mg/dL B-Type Natriuretic Peptide 116 H 0-100 pg/mL Troponin I High Sensitivity 23 4-50 ng/L Impression This patient has a basically normal echocardiogram in a low risk nuclear scan. The small defect may be artifactual. Plan: 1. The patient can be discharged home today 2. I emphasized with the patient risk factor modification 3. Continue aspirin 81 mg daily 4. She may benefit from a CT angiogram but this can be done as an outpatient. 5. Follow up with [facility] cardiology. CHARI NICOLE MD Nov 08, 2024 14:27
[2024-11-08] MEDS ORDERED: ASPI-1443 PO (14:48)
--- NOTE | 2024-11-08 15:25 | NUR ---
PT sitting in bed w/ eyes open 0 s/s of distress noted A&Ox4 able to make needs known, @ bedside. Discharge instructions given to PT & written and verbally. PT & verbally acknowledged understanding. I.V. removed intact w/o complications. Tele pack removed. PT escorted to POV via WC by [employer]SE INSPECTOR AND PATCHER w/o complications.
--- NOTE | 2024-11-08 16:19 | DS ---
Discharge Summary Hospital Course Summary: The patient is a 73-year-old female with past medical history of hypertension, diabetes mellitus type 2, essential tremors, chronic cough . The patient came to the ED with complain of chest pain. The pain was radiating to the back and was sharp in nature. It started 1 hour ago and she received aspirin 324 mg and nitroglycerin 0.[address] to the ED. There were aggravating or relieving factors. The patient also had shortness of breath, sweating, pleuritic chest pain but denied fevers, chills, nausea, vomiting. In the ED the patient had a temperature of 99, pulse 56, respiratory rate 14, blood pressure 118/54 and saturating at 99% on room air. The labs on arrival in ED showed sodium 143, potassium 4.2, creatinine 1.1, BUN 12, glucose 100 and troponin is 19. Chest x-ray reports no significant findings. Troponin was trended and was in normal range (17>20>23). The patient was admitted with a diagnosis of chest pain to rule out ACS. Cardiology was consulted and a 2D echocardiogram and Lexiscan test was ordered. Echocardiogram showed an LVEF of 55-60% and no other significant finding. A Lexiscan test indicated a low risk for cardiac events. The patient was stable and due to no significant finding, the patient was discharged by Cardiology. She was prescribed aspirin 81 mg and advised to follow-up in [address] [employer] Teacher(s): Cardiology Procedure(s): PATIENT: IMAN JUAN MR#: [id number] : 1950 SEX: F AGE: 73 LOCATION: [facility] ORDER [id number] STATUS: [facility] REPORT#: [id number] SERVICE 1034 REASON: CHEST PAIN ORDERING PHYSICIAN: STEVIE VICTORIA MD PROCEDURE: CXR1VW - CHEST 1VW CHEST 1VW REASON: CHEST PAIN COMPARISON: Study from 09/08/2022 is available. FINDINGS: Single view of the chest was obtained. Lungs are clear. Heart size is normal. There is no pulmonary vascular congestion. Mediastinum and bony thorax appear unremarkable. IMPRESSION: No evidence of airspace consolidation or pulmonary venous congestion. DICTATED BY: KEATON MONZON MD DATE: 11/06/24 115 ELECTRONICALLY SIGNED BY: KEATON MONZON MD DATE: 11/06/24 115 PATIENT: IMAN JUAN MR#: [id number] : 1950 SEX: F AGE: 73 LOCATION: [facility] ORDER [id number] STATUS: ADM IN REPORT#: [id number] SERVICE 0800 REASON: cp, cad ORDERING PHYSICIAN: DELFINA WILLAMS MD PROCEDURE: CARD ZAID - NM LEXISCAN CARDIOLITE APPROVED REPORT Height: 5 ft 1in Weight: 162 lbs TEST INDICATIONS CAD, Chest Pain The imaging protocol used to acquire images was Rest Tc-99m/stress Tc-99m 1 day Consent: The procedure was explained and understood by the patient. Informerd consent was witnessed by Deisy Falk RN First, low dose rest was performed then high dose stress. RESTING DATA: The resting ekg shows: NSR Rest SPECT myocardial perfusion imaging was performed in supine position minutes following the intravenous injection of 11 mCi of Tc-99 Sestamibi. Time of rest injection: 10:20: Date: 11/07/2024 PHARMACOLOGIC STRESS: Pharmacologic stress test was performed by injecting regadenoson 0.4 mg IV push followed by the intravenous injection of 28 mCi of Tc-99 Sestamibi. Time of stress injection: 11:45: Date: 11/07/2024 Heart Rate at time of stress injection: 47 bpm. Gated Stress SPECT was performed 60 minutes after stress injection. The images were gated to evaluate regional wall motion and calculate left ventricular ejection fraction. STRESS DETAILS Reason for Termination: Infusion complete Stress Symptoms: Stomach Pain Max HR Achieved: 86 bpm % of APMHR Achieved: 69 Max Blood Pressure: 148/67 mmHg Stress ECG: NSR Arrhythmia: No. ST Change: No. Study quality was good. Lung uptake was Normal. Artifact: No artifact LEFT VENTRICLE Size: The left ventricular size is normal. Systolic Function:The left ventricular systolic function is normal. Wall Motion: No regional wall motion abnormalities noted. The left ventricular ejection fraction was calculated to be 78%.TID = 1.45. LV PERFUSION Small size mild severity reversible perfusion defect of the apical inferolateral segment. RV Size/Shape Not well visualized. IMPRESSION Mildly abnormal pharmacologic nuclear stress test. Conclusion Small size mild severity reversible perfusion defect of the apical inferolateral segment. Summed stress score of 5. Although interpretation is that TID is elevated at 1.45, this is incorrect due to misalignemnt of the images. Visually, there is no TID Normal LVSF with EF hyperdynamic 78% Overall, results indicate low risk for cardiac events. DICTATED BY: DAXA SANDERS DO DATE: 11/07/24 1107 ELECTRONICALLY SIGNED BY: DAXA SANDERS DO DATE: 11/07/24 1640 PATIENT: IMAN JUAN MR#: [id number] : 1950 SEX: F AGE: 73 LOCATION: [facility] ORDER [id number] STATUS: ADM IN REPORT#: [id number] SERVICE 1248 REASON: chest pain ORDERING PHYSICIAN: TREV PARK MD PROCEDURE: ECHO CMP - ECHO 2-D COMPLETE APPROVED REPORT EXAM: Two-dimensional and M-mode echocardiogram with Doppler and color Doppler. Study Details: HTN , DM , CP INDICATION ICD: Chest Pain 2D Dimensions RVDd 3.1 cm LVEF(%) 87.1 (>50%) LVED Vol(simp.) 69.3 mL IVSd 0.8 (0.7-1.1cm) FS(%) 57 % LVES Vol(simp.) 21.6 mL LVDd 4.5 (3.8-5.6cm) LA (2D) 3.4 (1.6-4.0cm) LVEF(%, simp.) 69 % PWd 0.9 (0.7-1.1cm) Ao Root(2D) 2.9 (2.0-3.7cm) LA ESV INDEX (BP) 26.24 mL/m2 IVSs 1.4 cm LVOT diam 1.6 (1.8-2.4cm) LVDs 2.0 (2.5-4.0cm) PWs 1.6 cm Deformation Strain Apical 4 -22.3 % Apical 2 -18.4 % Apical 3 -21.3 % Global Strain -20.7 % M-Mode Dimensions EPSS 0.4 cm LA (MM) 3.9 (1.6-4.0cm) Ao Root(MM) 2.1 (2.0-3.7cm) Aortic Valve AoV Vmax 1.6 m/s Ao Peak GR 9.7 mmHg LVOT Vmax 0.8 m/s AoV VTI 0.4 m Ao Mean GR 4.6 mmHg LVOT VTI 0.22 m WILLIAM (VMAX) 1.04 cm2 WILLIAM (VTI) 1.2 cm2 Mitral Valve MV E Vmax 76.5 cm/s DECEL Time 240 ms MV A Vmax 85.7 cm/s P 1/2 T 69 ms E/A ratio 0.9 MVA (PHT) 3.2 cm2 TDI E/E' Medial 12.4 E/E' Lateral 10.4 Medial E' Peak V 6.15 cm/s Lateral E' Peak V 7.38 cm/s Pulmonary Valve PV Vmax 0.9 m/s PV VTI 0.25 m PV Mean GR 1.7 mmHg PV Peak GR 3.2 mmHg Tricuspid Valve TR Vmax 2.6 m/s RVSP 26.2 mmHg TR Peak GR 28.8 mmHg Left Ventricle The left ventricle is normal size. There is normal LV segmental wall motion. There is normal left ventricular wall thickness. LVEF is 55-60%. The left ventricular diastolic function is normal. Right Ventricle The right ventricle is normal size. The right ventricular systolic function is normal. Atria The left atrium size is normal. The interatrial septum is intact with no evidence for an atrial septal defect. The atrial septum is aneurysmal. The right atrium size is normal. Aortic Valve The aortic valve is normal in structure. Aortic valve is trileaflet. Trivial aortic regurgitation. There is no aortic valvular stenosis. Mitral Valve The mitral valve is normal in structure. Mitral regurgitation is trace. There is no mitral valve stenosis. Tricuspid Valve The tricuspid valve is normal in structure. Mild tricuspid regurgitation. There is no tricuspid valve stenosis. Pulmonic Valve The pulmonary valve is normal in structure. There is trace pulmonic valvular regurgitation. Great Vessels The aortic root is normal in size. The ascending aorta is normal in size. The IVC is normal in size and collapses >50% with inspiration. Pericardium No pericardial effusion. Other Information Quality : Good Rhythm : NSR Conclusion LVEF is 55-60%. The left ventricular diastolic function is normal. The atrial septum is aneurysmal. Trivial aortic regurgitation. Mild tricuspid regurgitation. DICTATED BY: DAXA SANDERS DO DATE: 11/07/24 1044 ELECTRONICALLY SIGNED BY: DAXA SANDERS DO DATE: 11/07/24 1634 Assessment/Plan: ASSESSMENT: Chest pain rule out ACS Hypertension Diabetes mellitus type 2 Essential tremors Discharge Instructions: Follow with the PCP in 2-3 days. Follow with the Cardiology in 1 week Home Medications: Active Scripts Aspirin (Aspirin EC) 81 Mg Tablet.dr, 1 TAB PO DAILY for 30 Days, #30 TAB 0 Refills Prov:KALLIE MCCARTHY MD 11/08/24 Reported Medications Cyclosporine (Restasis) 0.05 % Droperette, 1 DROP OS DAILY for 30 Days, #60 EACH 0 Refills 11/06/24 Cyclosporine (Restasis) 0.05 % Droperette, 1 DROP OP DAILY for 30 Days, #60 EACH 0 Refills 11/06/24 Semaglutide (Rybelsus) 3 Mg Tablet, 1 TAB PO DAILY for 30 Days, #30 TAB 0 Refills 11/06/24 Pantoprazole Sodium (Pantoprazole Sodium) 20 Mg Tablet.dr, 1 TAB PO DAILY for 30 Days, #30 TAB 0 Refills 11/06/24 Gabapentin (Gabapentin) 100 Mg Capsule, 1 CAP PO TID for 30 Days, #90 CAP 0 Refills 11/06/24 Dapagliflozin Propanediol (Farxiga) 5 Mg Tablet, 1 TAB PO DAILY for 30 Days, #30 TAB 0 Refills 11/06/24 Ropinirole HCl (Ropinirole HCl) 0.25 Mg Tablet, 0.25 MG PO BID for 1 tab in am, 2 tab hs , TAB 09/08/22 Olmesartan Medoxomil (Olmesartan Medoxomil) 40 Mg Tablet, 40 MG PO DAILY, TAB 09/08/22 Amlodipine Besylate (Amlodipine Besylate) 5 Mg Tablet, 5 MG PO DAILY, TAB 09/08/22 Discontinued Reported Medications Gabapentin (Gabapentin) 100 Mg Capsule, 200 MG PO TID for SCIATICA PAIN, CAP 09/08/22 Propranolol HCl (Propranolol HCl) 40 Mg Tablet, 40 MG PO DAILY, TAB 09/08/22 Tramadol Hcl (Tramadol HCl) 50 Mg Tablet, 50 MG PO BID PRN for PAIN, TAB 09/08/22 Scopolamine (Transderm-Scop) 1 Each Patch.td.3, 1 EACH TD ONCE PRN for 1 every 3 days for vertigo 09/08/22 Dexlansoprazole (Dexlansoprazole Dr) 30 Mg Cap.dr.bp, 30 MG PO DAILY 09/08/22 New Medications: Aspirin (Aspirin EC) 81 Mg Tablet.dr 1 TAB PO DAILY for 30 Days, #30 TAB 0 Refills Continued Medications: Amlodipine Besylate (Amlodipine Besylate) 5 Mg Tablet 5 MG PO DAILY, TAB Cyclosporine (Restasis) 0.05 % Droperette 1 DROP OP DAILY for 30 Days, #60 EACH 0 Refills Cyclosporine (Restasis) 0.05 % Droperette 1 DROP OS DAILY for 30 Days, #60 EACH 0 Refills Dapagliflozin Propanediol (Farxiga) 5 Mg Tablet 1 TAB PO DAILY for 30 Days, #30 TAB 0 Refills Gabapentin (Gabapentin) 100 Mg Capsule 1 CAP PO TID for 30 Days, #90 CAP 0 Refills Olmesartan Medoxomil (Olmesartan Medoxomil) 40 Mg Tablet 40 MG PO DAILY, TAB Pantoprazole Sodium (Pantoprazole Sodium) 20 Mg Tablet.dr 1 TAB PO DAILY for 30 Days, #30 TAB 0 Refills Ropinirole HCl (Ropinirole HCl) 0.25 Mg Tablet 0.25 MG PO BID for 1 tab in am, 2 tab hs , TAB Semaglutide (Rybelsus) 3 Mg Tablet 1 TAB PO DAILY for 30 Days, #30 TAB 0 Refills Time spent arranging discharge: 1-30 minutes PHYSICIAN RESIDENT STATEMENT I was present with the resident during the History and Physical exam and I have reviewed the resident's note. This case was discussed with the resident and I agree with the history, physical exam and medical decision making as documented. Additions/exceptions/observations were directly added to the notes. Marlon Oconnor MD, SYED M MD Nov 08, 2024 16:19
== END 2024-11-08 15:25 | disposition home or self-care (01) ==
LOC: EDH 10:33 → INTOOBSV 12:25 → EDHIP 12:25 → 4DH 18:24
PROVIDERS: ADMIT Internal Medicine; ATTEND Internal Medicine
DX: R07.89 Other chest pain (principal); E11.9 Type 2 diabetes mellitus without complications; E78.5 Hyperlipidemia, unspecified; E83.51 Hypocalcemia; G25.0 Essential tremor; I10 Essential (primary) hypertension; I25.10 Atherosclerotic heart disease of native coronary artery without angina pectoris; Z90.710 Acquired absence of both cervix and uterus; Z98.890 Other specified postprocedural states; Z79.899 Other long term (current) drug therapy
CPT/HCPCS: 99285; 83036; 84443; 84484 ×4; 80048 ×3; 85025 ×3; 82948 ×8; 81001; 36415 ×3; 71045; 93005; 96374; 83880; 93017; 78452; 93306; 93356; J3490 ×2; J2785; A9500 ×2; G0378 ×3